=== PATIENT | male | born 1960 | race Caucasian/White ===

== ENCOUNTER 2020-07-25 07:28 | Inpatient (IN) | payer OTHER ==
[~2020-07-25] VITALS: Ht 185.5 cm; Wt 58.0 kg
[2020-07-25] MEDS ORDERED: ASPIRIN 325 MG (5 GR) TABLET PO ONE (07:45)
[2020-07-25] MEDS ORDERED: ACETAMINOPHEN 500 MG TAB (TYLENOL) PO ONE (08:00)
[2020-07-25] MEDS ORDERED: CYCLOBENZAPRINE 10 MG (FLEXERIL) TAB PO ONE (08:00)
[2020-07-25] MEDS ORDERED: KETOROLAC 30 MG/ML VIAL IVP ONE (08:00)
--- NOTE | 2020-07-25 08:00 | ED Chest Pain ---
General Chief Complaint: Chest Pain Stated Complaint: CHEST PAIN Nursing Triage Note: Started having right sided chest pain that started yesterday morning while moving at work. Pain is constant and rated at 2/10 while at rest, 10/10 with movement. Has taken hydrocodone, xanax, and ibuprofen for pain. Is unable to lay flat due to the pain. Is associated with shortness of breath, which is worse with movement. No cough or fever. Pain is worse with movement and deep breaths, radiate to R back. Nursing Sepsis Screen: No Definite Risk History of Present Illness Date Seen by Provider: Jul 25, 2020 Time Seen by Provider: 07:40 Initial Comments The patient is a 60-year-old male with a history of long-standing tobacco abuse and without other chronic medical problems for which he takes daily medication. He has no known cardiovascular disease. He presents for evaluation of right- sided sharp, focal chest discomfort localizing over the right pectoralis muscle, pleuritic and directly reproducible to palpation. Discomfort is worse with deep breathing, with movement of the torso and with ranging of the right arm. It is better with rest. Pain radiates around to the right side of the back laterally at times. 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 Associated mild shortness of breath due to pain when the patient takes a deep breath. No associated fevers, nausea or vomiting, upper respiratory congestion/rhinorrhea, cough, abdominal pain, flank pain, midline back pain, recent immobilization, hemoptysis, calf pain or swelling, personal history of cancer, estrogen or steroid use. Patient did have what sounds like an inguinal hernia repair surgery on the left a couple of months ago. Symptoms somewhat improve with pain medication and anti- inflammatories at home; last medication about 6 hours ago. Patient is alert and pleasantly and appropriately interactive and in absolutely no acute distress upon initial evaluation here in the emergency department. Oxygen saturation low at 91% on RA; other vital signs are appropriate here. Allergies and Home Medications Allergies Coded Allergies: No Known Drug Allergies (Unverified , 07/25/20) Patient Home Medication List Home Medication List Reviewed: Yes Review of Systems Review of Systems Constitutional: no symptoms reported All Other Systems Reviewed Negative Unless Noted: Yes (Negative excepted noted.) Past Xtsqymk-Fmdyfl-Crcdcp Hx Past Med/Social Hx: Reviewed Nursing Past Med/Soc Hx Patient Social History Alcohol Use: Denies Use Recreational Drug Use: No Smoking Status: Current Everyday Smoker Type Used: Cigarettes 2nd Hand Smoke Exposure: Yes Recent Foreign Travel: No Contact w/Someone Who Travel: No Recent Infectious Disease Expo: No Recent Hopitalizations: No Seasonal Allergies Seasonal Allergies: No Past Medical History Surgeries: Yes (hernia) Respiratory: No Cardiac: No Neurological: No Genitourinary: No Gastrointestinal: No Musculoskeletal: No Endocrine: No HEENT: No Cancer: No Psychosocial: No Integumentary: No Blood Disorders: No Adverse Reaction/Blood Tranf: No Family Medical History Reviewed Nursing Family Hx Physical Exam Vital Signs Vital Signs - First Documented 07/25/20 07:35 Temp 36.0 Pulse 97 Resp 16 B/P (MAP) 134/76 (95) Pulse Ox 93 Capillary Refill : Less Than 3 Seconds Height, Weight, BMI Height: '" Weight: lbs. oz. kg; BMI Method: General Appearance: No Apparent Distress Other comments This is an older male appearing nontoxic and in no acute distress. Head is normocephalic and atraumatic. Neck is supple and nontender. Oropharynx is moist. Lungs are clear to auscultation at all stations. Examination of the chest wall reveals no erythema, warmth, swelling, crepitus or paradoxical movement. There is mild focal tenderness to palpation over the right pectoralis muscle, worst medially. There is a normal S1 and S2 without rubs or gallops and capillary refill is appropriate, less than 2 seconds globally. 2+ equal pulses are noted to bilateral radial, dorsalis pedis and posterior tibial arteries without dependent peripheral edema noted anywhere. Abdomen is soft, nontender and nondistended without pulsatile mass. Skin is warm and dry without cyanosis, clubbing or edema. Psychiatrically, the patient demonstrates appropriate mood and affect and is alert. Procedures/Interventions Chest Tube : Chest Tube Location: Mid-Clavicular Chest Anesthesia: 1% Lidocaine w/ Epi V[place] of Air [place]: Yes Post Procedure CXR?: Yes Progress Thora-Vent thoracostomy placed to R 2nd midaxillary line by me; patient tolerated well and there were no complications. Substantial improvement post- procedure. Pre-procedure, patient became acutely dyspneic so needle decompression was performed with an 18-gauge spinal needle at the same site, by me, to stabilize the patient prior to definitive thoracostomy placement. Critical Care Note Critical Care Total Time (minutes) 33 Progress/Results/Core Measures Results/Orders Lab Results Laboratory Tests Test 07/25/20 07:34 07/25/20 07:54 Range/Units White Blood Count 12.4 H 4.3-11.0 10^3/uL Red Blood Count 4.23 L 4.35-5.85 10^6/uL Hemoglobin 11.7 L 13.3-17.7 G/DL Hematocrit 36 L 40-54 % Mean Corpuscular Volume 86 80-99 FL Mean Corpuscular Hemoglobin 28 25-34 PG Mean Corpuscular Hemoglobin Concent 32 32-36 G/DL Red Cell Distribution Width 14.0 10.0-14.5 % Platelet Count 315 130-400 10^3/uL Mean Platelet Volume 8.2 7.4-10.4 FL Immature Granulocyte % (Auto) 0 % Neutrophils (%) (Auto) 80 H 42-75 % Lymphocytes (%) (Auto) 12 12-44 % Monocytes (%) (Auto) 6 0-12 % Eosinophils (%) (Auto) 1 0-10 % Basophils (%) (Auto) 0 0-10 % Neutrophils # (Auto) 9.9 H 1.8-7.8 X 10^3 Lymphocytes # (Auto) 1.5 1.0-4.0 X 10^3 Monocytes # (Auto) 0.8 0.0-1.0 X 10^3 Eosinophils # (Auto) 0.1 0.0-0.3 10^3/uL Basophils # (Auto) 0.1 0.0-0.1 10^3/uL Immature Granulocyte # (Auto) 0.0 0.0-0.1 10^3/uL Prothrombin Time 12.9 12.2-14.7 SEC INR Comment 0.9 0.8-1.4 Activated Partial Thromboplast Time 28 24-35 SEC D-Dimer 0.36 0.00-0.49 UG/ML Sodium Level 134 L 135-145 MMOL/L Potassium Level 4.2 3.6-5.0 MMOL/L Chloride Level 96 L 98-107 MMOL/L Carbon Dioxide Level 26 21-32 MMOL/L Anion Gap 12 5-14 MMOL/L Blood Urea Nitrogen 19 H 7-18 MG/DL Creatinine 0.76 0.60-1.30 MG/DL Estimat Glomerular Filtration Rate > 60 BUN/Creatinine Ratio 25 Glucose Level 152 H 70-105 MG/DL Calcium Level 9.0 8.5-10.1 MG/DL Corrected Calcium 8.5-10.1 MG/DL Total Bilirubin 0.5 0.1-1.0 MG/DL Aspartate Amino Transf (AST/SGOT) 25 5-34 U/L Alanine Aminotransferase (ALT/SGPT) 21 0-55 U/L Alkaline Phosphatase 78 40-136 U/L Troponin I < 0.30 <0.30 NG/ML Pro-B-Type Natriuretic Peptide 26.3 <75.0 PG/ML Total Protein 7.1 6.4-8.2 GM/DL Albumin 4.6 H 3.2-4.5 GM/DL My Orders Orders - MITA ARAYA MD Cbc With Automated Diff (07/25/20 07:34) Comprehensive Metabolic Panel (07/25/20 07:34) Troponin I Fs (07/25/20 07:34) Ekg Tracing (07/25/20 07:34) Chest 1 View Ap/Pa Only (07/25/20 07:34) Protime With Inr (07/25/20 07:34) Partial Thromboplastin Time (07/25/20 07:34) Probnp Fs (07/25/20 07:34) Aspirin Tablet (Aspirin Tablet) (07/25/20 07:45) Fibrin Degradation Products (07/25/20 07:49) Ketorolac Injection (Toradol Injection) (07/25/20 08:00) Acetaminophen Tablet (Tylenol Tablet) (07/25/20 08:00) Cyclobenzaprine Tablet (Flexeril Tablet) (07/25/20 08:00) Lidocaine 1% Inj 20 Ml (Xylocaine 1% Inj (07/25/20 08:22) Ceftriaxone For Iv Use (Rocephin For I (07/25/20 08:45) Azithromycin Injection (Zithromax Inject (07/25/20 08:45) Fentanyl Injection (Sublimaze Injection (07/25/20 08:45) Fentanyl Injection (Sublimaze Injection (07/25/20 09:00) Ns Iv 1000 Ml (Sodium Chloride 0.9%) (07/25/20 08:54) Chest 1 View Ap/Pa Only (07/25/20 09:08) Ns Iv 1000 Ml (Sodium Chloride 0.9%) (07/25/20 09:15) Medications Given in ED Current Medications Medications Dose Ordered Sig/Leti Route Start Time Stop Time Status Last Admin Dose Admin Acetaminophen 1,000 mg ONCE ONCE PO 07/25/20 08:00 07/25/20 08:01 DC 07/25/20 07:59 1,000 MG Aspirin 325 mg ONCE ONCE PO 07/25/20 07:45 07/25/20 07:46 DC 07/25/20 07:59 325 MG Azithromycin 500 mg/Sodium Chloride 250 ml @ 250 mls/hr ONCE ONCE IV 07/25/20 08:45 07/25/20 09:44 07/25/20 09:22 250 MLS/HR Ceftriaxone Sodium 1000 mg/ Sterile Water 10 ml @ 200 mls/hr ONCE ONCE IV 07/25/20 08:45 07/25/20 08:47 DC 07/25/20 09:22 200 MLS/HR Cyclobenzaprine HCl 10 mg ONCE ONCE PO 07/25/20 08:00 07/25/20 08:01 DC 07/25/20 07:59 10 MG Fentanyl Citrate 100 mcg ONCE ONCE IVP 07/25/20 09:00 07/25/20 09:01 DC 07/25/20 08:56 100 MCG Ketorolac Tromethamine 30 mg ONCE ONCE IVP 07/25/20 08:00 07/25/20 08:01 DC 07/25/20 08:01 30 MG Lidocaine HCl 20 ml STK-MED ONCE .ROUTE 07/25/20 08:22 07/25/20 08:24 DC 07/25/20 09:23 20 ML Vital Signs/I&O 07/25/20 07:35 Temp 36.0 Pulse 97 Resp 16 B/P (MAP) 134/76 (95) Pulse Ox 93 Blood Pressure Mean: 95 Progress Progress Note : Time: 08:03 Progress Note HEART score 2, low risk for near-term MACE. Wells score 0 for PE, low risk. 60-year-old gentleman who presents with atypical pleuritic chest discomfort, constant since last evening, reproducible to palpation and with onset while lifting boxes at work. We'll check labs and EKG and chest x-ray and will give a full strength aspirin as well as some medication for discomfort and spasm is noted and will then reevaluate. Oxygenation is abnormal; patient is at 91% on RA, though not conversationally dyspneic. 0930: Patient with large right sided likely spontaneous pneumothorax with a tension component. Patient moved to ED 3 for procedure and did begin to develop severe dyspnea just prior to placement of Thora-Vent thoracostomy. Therefore, Mr. Heard was needle decompressed in the right second intercostal space by me just prior to placement of definitive thoracostomy, which he tolerated well without complications. Post-procedure, patient subjectively much improved and oxygen saturation high 90s on RA. Placed on NRB to facilitate reabsorption of his PTX. Repeat CXR post-thoracostomy demonstrates near-resolution of ptx and resolution of tension component. Given leukocytosis and pleural effusion with possible consolidation at the right base (although more likely atelectasis based on overall clinical scenario), Rocephin and azithromycin administered. Patient will need admission secondary to continued significant air leak. Graciously accepted for admission by Dr. Augustin, who advises that he will have Dr. Neville of pulmonary medicine see the patient urgently on arrival to [facility]. Attempted to contact Dr. Neville myself by phone without success. Stabilized for transfer at this time. Comment Sinus rhythm, rate 78, no acute ST elevation or depression, CO 155, QRS 90, QTc 412, EP interpretation. Nonischemic tracing, intervals appropriate. Diagnostic Imaging Comments NAME: SELINA HEARD [facility] REC#: [id number] PT STATUS: REG ER : 1960 PHYSICIAN: MITA ARAYA MD ADMIT DATE: 07/25/20/ER FS Draft Date of Exam:07/25/20 CHEST 1 VIEW AP/PA ONLY INDICATION: Right upper chest pain since yesterday. EXAMINATION: Single view chest from 07/25/2020. FINDINGS: Heart is unremarkable, pulmonary vasculature normal. There is a large right pneumothorax with mild tension noted. There is a right pleural effusion. Left lung clear. IMPRESSION: 1. Large right tension pneumothorax with right pleural effusion also noted. Findings called to Dr. Araya by Dr. Watson at the time of dictation 07/25/2020 at 8:19 a.m.. Dictated on workstation # [id number] Dict: 07/25/20814 Trans: 07/25/20821 [facility] [id number] Interpreted by: ANDREAS WATSON MD Electronically signed by: NAME: SELINA HEARD [facility] REC#: [id number] PT STATUS: REG ER : 1960 PHYSICIAN: MITA ARAYA MD ADMIT DATE: 07/25/20/ER FS Draft Date of Exam:07/25/20 CHEST 1 VIEW AP/PA ONLY INDICATION: Post Thora vent. EXAMINATION: Chest 07/25/2020 COMPARISON: 07/25/2020 at 8:02 a.m. FINDINGS: There is a chest tube towards the right apex with marked interval improvement in appearance of the right pneumothorax. Tiny residual pneumothorax is suspected at the apex. There is better aeration at the right lung base with atelectasis noted. Adjacent effusion is seen. The remaining chest demonstrate a vague nodularity in the left lower chest most likely an overlying nipple shadow. This could be followed with nipple markers at the next followup chest x-ray. IMPRESSION: 1. Better aeration of the right lung base with marked improvement of the right pneumothorax 2. Small right pleural effusion 3. Question nodularity versus nipple shadow left lower chest see above discussion and recommendations. Dictated on workstation # [id number] Dict: 07/25/20920 Trans: 07/25/20929 [facility] [id number] Interpreted by: ANDREAS WATSON MD Electronically signed by: Departure Impression Primary Impression: Tension pneumothorax, spontaneous Disposition: ADMITTED INPATIENT Condition: Stable MITA ARAYA MD Jul 25, 2020 08:00
[2020-07-25 08:03] LABS: HEMATOCRIT 36 % (40-54); HEMOGLOBIN 11.7 G/DL (13.3-17.7); MEAN CORPUSCULAR HEMOGLOBIN 28 PG (25-34); MEAN CORPUSCULAR VOLUME 86 FL (80-99); WHITE BLOOD COUNT 12.4 10^3/uL (4.3-11.0)
[2020-07-25 08:04] LABS: BASOPHILS # (AUTO) 0.1 10^3/uL (0.0-0.1); BASOPHILS % (AUTO) 0 % (0-10); EOSINOPHILS # (AUTO) 0.1 10^3/uL (0.0-0.3); EOSINOPHILS % (AUTO) 1 % (0-10); LYMPHOCYTES # (AUTO) 1.5 X 10^3 (1.0-4.0); LYMPHOCYTES % (AUTO) 12 % (12-44); MEAN CORPUSCULAR HGB CONC 32 G/DL (32-36); MEAN PLATELET VOLUME 8.2 FL (7.4-10.4); MONOCYTES # (AUTO) 0.8 X 10^3 (0.0-1.0); MONOCYTES % (AUTO) 6 % (0-12); NEUTROPHILS # (AUTO) 9.9 X 10^3 (1.8-7.8); NEUTROPHILS % (AUTO) 80 % (42-75); PLATELET COUNT 315 10^3/uL (130-400)
--- NOTE | 2020-07-25 08:06 | NUR ---
Attempted to contact to give patient update. Phone is going straight to voicemail. Notified patient
[2020-07-25] MEDS ORDERED: LIDOCAINE 1% INJ 20 ML 20 ML VIAL ONE (08:22)
--- NOTE | 2020-07-25 08:24 | Diagnostic Imaging Report ---
INDICATION: Right upper chest pain since yesterday. EXAMINATION: Single view chest from 07/25/2020. FINDINGS: Heart is unremarkable, pulmonary vasculature normal. There is a large right pneumothorax with mild tension noted. There is a right pleural effusion. Left lung clear. IMPRESSION: 1. Large right tension pneumothorax with right pleural effusion also noted. Findings called to Dr. Araya by Dr. Watson at the time of dictation 07/25/2020 at 8:19 a.m.. Dictated by: Dictated on workstation # [id number]
[2020-07-25 08:29] LABS: INR 0.9 (0.8-1.4); PROTHROMBIN TIME PATIENT 12.9 SEC (12.2-14.7)
[2020-07-25 08:30] LABS: FIBRIN DEGRADATION PRODUCTS 0.36 UG/ML (0.00-0.49)
[2020-07-25 08:35] LABS: BUN/CREATININE RATIO 25; CARBON DIOXIDE 26 MMOL/L (21-32); CHLORIDE 96 MMOL/L (98-107); CREATININE SERUM 0.76 MG/DL (0.60-1.30); GFR ESTIMATED > 60; GLUCOSE 152 MG/DL (70-105); POTASSIUM 4.2 MMOL/L (3.6-5.0); SODIUM 134 MMOL/L (135-145)
[2020-07-25 08:36] LABS: ALANINE AMINOTRANSFERASE 21 U/L (0-55); ALBUMIN 4.6 GM/DL (3.2-4.5); ALKALINE PHOSPHATASE 78 U/L (40-136); BILIRUBIN,TOTAL 0.5 MG/DL (0.1-1.0); TOTAL PROTEIN 7.1 GM/DL (6.4-8.2)
[2020-07-25] MEDS ORDERED: fentaNYL INJECTION 100 MCG/2 ML AMP IVP ONE ×2 (08:45→09:00)
[2020-07-25] MEDS ORDERED: AZITHROMYCIN INJECTION 500 MG in NS (IVPB) 250 ML IV ONE (08:45)
[2020-07-25] MEDS ORDERED: cefTRIAXone FOR IV USE 1,000 MG in WATER (STERILE) FOR INJECTION 10 ML IV ONE (08:45)
[2020-07-25] MEDS ORDERED: NS IV 1000 ML 1,000 ML ONE (08:54)
[2020-07-25] MEDS ORDERED: NS IV 1000 ML 1,000 ML IV SCH (09:15)
--- NOTE | 2020-07-25 09:31 | Diagnostic Imaging Report ---
INDICATION: Post Thora vent. EXAMINATION: Chest 07/25/2020 COMPARISON: 07/25/2020 at 8:02 a.m. FINDINGS: There is a chest tube towards the right apex with marked interval improvement in appearance of the right pneumothorax. Tiny residual pneumothorax is suspected at the apex. There is better aeration at the right lung base with atelectasis noted. Adjacent effusion is seen. The remaining chest demonstrate a vague nodularity in the left lower chest most likely an overlying nipple shadow. This could be followed with nipple markers at the next followup chest x-ray. IMPRESSION: 1. Better aeration of the right lung base with marked improvement of the right pneumothorax 2. Small right pleural effusion 3. Question nodularity versus nipple shadow left lower chest see above discussion and recommendations. Dictated by: Dictated on workstation # [id number]
[2020-07-25 10:30] VITALS: BP 116/68
--- NOTE | 2020-07-25 11:36 | Pulmonary Consultation ---
History of Present Illness History of Present Illness Date Seen by Provider: Jul 25, 2020 Time Seen by Provider: 11:31 Date of Admission History of Present Illness 60yo with hx of extensive tobacco use presented to ED secondary to worsening acute pleuritic CP and SOB that started yesterday. Pt denies SOB. [facility] placed a pleurex chest tube. SOB is improved. CP is located around insertion site. Allergies and Home Medications Allergies Coded Allergies: No Known Drug Allergies (Unverified , 07/25/20) Past Qlfeomu-Duxjvw-Xuqalv Hx Past Med/Social Hx: Reviewed Nursing Past Med/Soc Hx Patient Social History Alcohol Use: Denies Use Recreational Drug Use: No Smoking Status: Current Everyday Smoker Type Used: Cigarettes 2nd Hand Smoke Exposure: Yes Recent Foreign Travel: No Contact w/Someone Who Travel: No Recent Infectious Disease Expo: No Recent Hopitalizations: No Seasonal Allergies Seasonal Allergies: No Past Medical History Surgeries: Yes (hernia) Respiratory: No Cardiac: No Neurological: No Genitourinary: No Gastrointestinal: No Musculoskeletal: No Endocrine: No HEENT: No Cancer: No Psychosocial: No Integumentary: No Blood Disorders: No Adverse Reaction/Blood Tranf: No Family Medical History Reviewed Nursing Family Hx Sepsis Event Evaluation Height, Weight, BMI Height: '" Weight: lbs. oz. kg; BMI Method: Exam Exam Vital Signs Date Time Temp Pulse Resp B/P (MAP) Pulse Ox O2 Delivery O2 Flow Rate FiO2 07/25/20 11:16 61 14 144/81 100 OxyMask 6.00 07/25/20 07:35 36.0 97 16 134/76 (95) 93 Height & Weight Height: '" Weight: lbs. oz. kg; BMI Method: General Appearance: No Apparent Distress Capillary Refill: Less Than 3 Seconds Results Lab Laboratory Tests 07/25/20 07:34 07/25/20 07:54 Assessment/Plan Assessment/Plan Acute spont PTX s/p Pleurex chest tube. -Check CT of chest r/o Mass -Place pleurex cath up to suction after chest CT scan. -May need to place regular chest tube if blood gums up current chest tube. right pleural effusion -check BNP -May need echo Leukocytosis r/o pneumonia -Rocephin, and azithromycin -cultures pending -check PCT WEI CASTAÑEDA DO Jul 25, 2020 11:36
[2020-07-25] MEDS ORDERED: HOLD METFORMIN - RECEIVED CONTRAST 20 ML VIAL IV SCH (11:45)
[2020-07-25] MEDS ORDERED: IOHEXOL 350 MG/ML 100 ML (OMNIPAQUE 350) VIAL IV ONE ×2 (11:45)
[2020-07-25] MEDS ORDERED: AZITHROMYCIN INJECTION 500 MG in NS (IVPB) 250 ML IV SCH (11:45)
[2020-07-25] MEDS ORDERED: cefTRIAXone FOR IV USE 1,000 MG in WATER (STERILE) FOR INJECTION 10 ML IV SCH (11:45)
[2020-07-25] MEDS ORDERED: NS 100 ML (IVPB) BAG IV ONE (11:45)
--- NOTE | 2020-07-25 12:33 | Diagnostic Imaging Report ---
PROCEDURE: CT chest with contrast only. TECHNIQUE: Multiple contiguous axial images were obtained through the chest after administration of intravenous contrast. Auto Exposure Controls were utilized during the CT exam to meet ALARA standards for radiation dose reduction. INDICATION: Pneumothorax, mass There are no prior CT chest examinations available for comparison. The plain film examination of the chest performed earlier today at 9:05 AM noted that the pneumothorax on the right had diminished significantly in size when compared to the exam performed at 8:02 AM. A small caliber chest tube had been inserted. On this exam, the small caliber chest tube is again evident, seems to be in good position. However there is at least a moderate hydropneumothorax still present. The amount of fluid in the right lung base measures approximately 10 cm maximum depth. Much of the right lung is collapsed about the right hilum and there is some associated atelectasis/infiltrate throughout the right lung. There also still seems to be slight shift of the midline to the left. The heart is stable in size and within normal limits. Coronary artery calcifications are noted. The aorta is not abnormally dilated and is no sign of dissection. The pulmonary arteries were not fully opacified. Where visualized there is no definite defect within the pulmonary arteries. The chest exam performed earlier today did raise a question of a parenchymal density in the left lower lobe. On this exam there is no mass or pneumonia evident in the left lung. There are emphysematous changes involving the left lung however. There is no mediastinal or hilar adenopathy although the right hilum is difficult to assess due to the compressed lung about the hilum. The thyroid gland is partially secured by streak artifact. The images through the upper abdomen failed to show any sign of an acute abnormality. The bone windows are unremarkable for fracture or for destructive lesion. IMPRESSION: 1. There is at least a moderate residual hydropneumothorax on the right. There may also still be an element of mild tension present. 2. There is no acute cardiopulmonary abnormality identified otherwise. 3. There is no lung mass involving the left lower lobe to correspond to density seen on this chest exam. 4. These results were called to Dr. Nagi Neville at the time of this dictation. Dictated by: Dictated on workstation # [id number]
[2020-07-25] MEDS ORDERED: morphine INJ 4 MG/ML 1 ML (VIAL/SYRINGE) ONE (14:12)
[2020-07-25] MEDS ORDERED: ONDANSETRON 4 MG/2 ML (SDV) Z0FRAN IVP PRN (16:00)
--- NOTE | 2020-07-25 16:02 | Diagnostic Imaging Report ---
INDICATION: Hydropneumothorax on the right. EXAMINATION: Portable erect AP chest at 3:48 p.m. FINDINGS: The CT chest exam performed earlier today at 11:52 a.m. did note at least a moderate residual hydropneumothorax on the right. On this study, the pneumothorax component may be somewhat less. There has been a moderate increase in the atelectasis/infiltrate and fluid involving the right lung base, however. The right-sided chest tube, seen on the prior study, is again evident. The left lung remains generally clear. The heart is stable. IMPRESSION: The pneumothorax component of the hydropneumothorax on the right may be somewhat less than on the prior exam; however, there does seem to be greater involvement of the right lung base by atelectasis/infiltrate and fluid. A follow up study would be recommended for continued evaluation. Dictated by: Dictated on workstation # [id number]
[2020-07-25] MEDS: KETOROLAC 15 MG/ML VIAL IVP PRN (19:37)
--- NOTE | 2020-07-25 20:18 | History & Physical-Hospitalist ---
History of Present Illness HPI/Chief Complaint Shashank Todd is a 60 year old male with history of tobacco abuse who presented with chest pain. He reports that the pain is worse with inspiration and movement. The pain started yesterday while working. The pain radiates around his right side to his back. There is associated dyspnea. He denies fevers. He denies cough. He denies abdominal pain, nausea, and vomiting. He denies hemoptysis. He does not take any medicines daily. He does not have any known medical problems. He is a current smoker, but says he is going to quit because of this issue. Source: patient Exam Limitations: no limitations Date Seen 07/25/20 Time Seen by a Provider: 15:00 Attending Physician Josef Dan MD PCP No,Local Physician Referring Physician Date of Admission Jul 25, 2020 at 11:10 Home Medications & Allergies Home Medications Reviewed patient Home Medication Reconciliation performed by pharmacy medication reconciliations fire control technician b and/or nursing. Patients Allergies have been reviewed. Allergies Allergies Coded Allergies No Known Drug Allergies ([id number]/31/20) Past Nnohduk-Rumgxn-Hqmdpj Hx Past Med/Social Hx: Reviewed Nursing Past Med/Soc Hx Patient Social History Alcohol Use: Denies Use Recreational Drug Use: No Smoking Status: Current Everyday Smoker Type Used: Cigarettes 2nd Hand Smoke Exposure: Yes Recent Foreign Travel: No Contact w/other who traveled: No Recent Hopitalizations: No Recent Infectious Disease Expo: No Seasonal Allergies Seasonal Allergies: No Past Medical History History of Blood Disorders: No Adverse Reaction to Blood Higgins: No Family History Reviewed Nursing Family Hx Review of Systems Constitutional: no symptoms reported EENTM: no symptoms reported Respiratory: short of breath Cardiovascular: chest pain Gastrointestinal: no symptoms reported Genitourinary: no symptoms reported Musculoskeletal: no symptoms reported Skin: no symptoms reported Psychiatric/Neurological: No Symptoms Reported Physical Exam Physical Exam Vital Signs Vital Signs - First Documented 07/25/20 07/25/20 07:35 11:10 Temp 36.0 Pulse 97 Resp 16 B/P (MAP) 134/76 (95) Pulse Ox 93 O2 Delivery High Flow N/C O2 Flow Rate 6.00 Capillary Refill : Less Than 3 Seconds Height, Weight, BMI Height: '" Weight: lbs. oz. kg; 18.25 BMI Method: General Appearance: No Apparent Distress, Thin HEENT: PERRL/EOMI, Pharynx Normal Neck: Normal Inspection, Supple Respiratory: No Respiratory Distress, Decreased Breath Sounds, Other (right- sided chest tube in place on anterior chest wall with bloody output) Cardiovascular: Regular Rate, Rhythm, No Edema, No Murmur, Normal Peripheral Pulses Gastrointestinal: Normal Bowel Sounds, Non Tender, Soft Extremity: Normal Inspection, Non Tender, No Pedal Edema Neurologic/Psychiatric: Alert, Oriented x3, No Motor/Sensory Deficits, Normal Mood/Affect Skin: Normal Color, Warm/Dry Lymphatic: No Adenopathy Results Results/Procedures Labs Laboratory Tests 07/25/20 07:34 07/25/20 07:54 Patient resulted labs reviewed. Imaging: Reviewed Imaging Report Assessment/Plan Admission Diagnosis Acute respiratory failure with hypoxia due to hydropneumothorax Admission Status: Inpatient Order (span 2 midnights) Reason for Inpatient Admission: Hydropneumothorax requiring chest tube Assessment and Plan Acute respiratory failure with hypoxia Spontaneous hydropneumothorax Chest tube in place Chest xray revealed pneumothorax Chest tube placed in ER Pulmonology consulted, appreciate assistance CT Chest performed showed hydropneumothorax Chest tube placed to suction Monitor output, may need larger chest tube placed Procalcitonin 0.02, started on antibiotics, Rocephin and Azithromycin Serial chest xrays Supplemental oxygen Current smoker Nicotine gum as needed BMI less than 19 General diet plus Ensure DVT prophylaxis: SCDs Diagnosis/Problems Diagnosis/Problems (1) Hydropneumothorax (2) Acute respiratory failure with hypoxia (3) Current smoker (4) Body mass index (BMI) of 19 or less in adult (5) Chest tube in place Clinical Quality Measures DVT/VTE Risk/Contraindication: Risk Factor Score Per Nursin RFS Level Per Nursing on Admit: 3=High JOSEF DAN MD Jul 25, 2020 20:18
[2020-07-25] MEDS ORDERED: NICOTINE 2 MG GUM (NICORETTE) PO PRN (20:30)
[2020-07-25] MEDS: morphine INJ 4 MG/ML 1 ML (VIAL/SYRINGE) IVP PRN (23:47)
[2020-07-26 03:51] LABS: BASOPHILS % (AUTO) 0 % (0-10); EOSINOPHILS # (AUTO) 0.3 10^3/uL (0.0-0.3); EOSINOPHILS % (AUTO) 3 % (0-10); HEMATOCRIT 27 % (40-54); HEMOGLOBIN 8.6 g/dL (13.3-17.7); LYMPHOCYTES % (AUTO) 21 % (12-44); MEAN CORPUSCULAR HEMOGLOBIN 28 pg (25-34); MEAN CORPUSCULAR HGB CONC 32 g/dL (32-36); MEAN CORPUSCULAR VOLUME 86 fL (80-99); MONOCYTES # (AUTO) 0.9 10^3/uL (0.0-1.0); MONOCYTES % (AUTO) 9 % (0-12); NEUTROPHILS # (AUTO) 6.3 10^3/uL (1.8-7.8); NEUTROPHILS % (AUTO) 66 % (42-75); PLATELET COUNT 196 10^3/uL (130-400); WHITE BLOOD COUNT 9.6 10^3/uL (4.3-11.0)
[2020-07-26] MEDS: KETOROLAC 15 MG/ML VIAL IVP PRN ×3 (04:07→23:15)
[2020-07-26 04:08] LABS: CHLORIDE 100 MMOL/L (98-107); POTASSIUM 4.3 MMOL/L (3.6-5.0); SODIUM 135 MMOL/L (135-145)
[2020-07-26 04:10] LABS: CALCIUM 8.1 MG/DL (8.5-10.1); GLUCOSE 104 MG/DL (70-105)
[2020-07-26 04:12] LABS: CARBON DIOXIDE 26 MMOL/L (21-32)
[2020-07-26 04:14] LABS: CREATININE SERUM 0.67 MG/DL (0.60-1.30); GFR ESTIMATED > 60
[2020-07-26 04:15] LABS: BUN/CREATININE RATIO 22
[2020-07-26 04:16] LABS: MAGNESIUM 1.9 MG/DL (1.6-2.4)
[2020-07-26] MEDS: POTASSIUM CL 10MEQ/50ML IVPB 50 ML IV SCH (04:19)
[2020-07-26] MEDS: MAGNESIUM 1 GM/100 ML IVPB 100 ML IV SCH (04:19)
[2020-07-26] MEDS: KCL 20 MEQ TAB (K-DUR) PO SCH (04:19)
--- NOTE | 2020-07-26 05:28 | Pulmonary Progress Note ---
Subjective Time Seen by a Provider: 05:23 Sepsis Event Evaluation Height, Weight, BMI Height: '" Weight: lbs. oz. kg; 18.25 BMI Method: Exam Exam Vital Signs Date Time Temp Pulse Resp B/P (MAP) Pulse Ox O2 Delivery O2 Flow Rate FiO2 07/26/20 04:00 99 High Flow N/C 6.00 07/26/20 03:00 67 115/69 97 High Flow N/C 6.00 07/26/20 02:00 62 114/56 99 High Flow N/C 6.00 07/26/20 01:00 64 124/59 100 High Flow N/C 6.00 07/26/20 01:00 71 07/26/20 00:21 95 High Flow N/C 6.00 07/26/20 00:00 99 High Flow N/C 6.00 07/26/20 00:00 60 126/65 100 High Flow N/C 6.00 07/25/20 23:00 60 126/75 100 High Flow N/C 6.00 07/25/20 22:00 62 134/67 100 High Flow N/C 6.00 07/25/20 21:00 66 122/65 100 High Flow N/C 6.00 07/25/20 20:04 37.0 07/25/20 20:00 98 High Flow N/C 6.00 07/25/20 20:00 64 122/59 100 High Flow N/C 6.00 07/25/20 19:00 70 07/25/20 19:00 65 129/63 100 High Flow N/C 6.00 07/25/20 18:00 64 126/65 100 High Flow N/C 6.00 07/25/20 17:00 74 116/70 100 High Flow N/C 6.00 07/25/20 16:00 High Flow N/C 6.00 07/25/20 16:00 65 126/64 99 High Flow N/C 6.00 07/25/20 15:49 36.8 07/25/20 15:00 81 122/66 92 High Flow N/C 6.00 07/25/20 14:00 80 111/65 96 High Flow N/C 6.00 07/25/20 13:00 81 117/68 High Flow N/C 6.00 07/25/20 12:59 67 10/31/20 12:00 69 112/69 96 High Flow N/C 6.00 07/25/20 12:00 High Flow N/C 6.00 07/25/20 11:51 69 07/25/20 11:31 High Flow N/C 6.00 07/25/20 11:16 61 14 144/81 100 OxyMask 6.00 07/25/20 11:10 High Flow N/C 6.00 07/25/20 10:30 64 18 116/68 100 07/25/20 07:35 36.0 97 16 134/76 (95) 93 I & O 07/26/20 07:00 Intake Total 3120 ml Output Total 50 ml Balance 3070 ml Height & Weight Height: '" Weight: lbs. oz. kg; 18.25 BMI Method: General Appearance: No Apparent Distress, Thin HEENT: PERRL/EOMI, Pharynx Normal Neck: Normal Inspection, Supple Respiratory: No Respiratory Distress, Decreased Breath Sounds, Other (right- sided chest tube in place on anterior chest wall with bloody output) Cardiovascular: Regular Rate, Rhythm, No Edema, No Murmur, Normal Peripheral Pulses Capillary Refill: Less Than 3 Seconds Extremity: Normal Inspection, Non Tender, No Pedal Edema Neurologic/Psychiatric: Alert, Oriented x3, No Motor/Sensory Deficits, Normal Mood/Affect Skin: Normal Color, Warm/Dry Lymphatic: No Adenopathy Results Lab Laboratory Tests 07/25/20 07:34 07/25/20 07:54 07/26/20 03:45 Assessment/Plan Assessment/Plan Acute spont PTX s/p Pleurex chest tube. -CT of chest with contrast reviewed -Continue pleurex cath with suction -May need to place regular chest tube if blood gums up current chest tube. right pleural effusion -BNP - is normal Anemia -Monitor -Hold lovenox for now Leukocytosis-- resolved. Doubt pna -D/C Rocephin, and azithromycin -PCT- Normal Severe COPD/Emphysema Tobacco use -He has smoked since 13yo WEI CASTAÑEDA DO Jul 26, 2020 05:28
--- NOTE | 2020-07-26 08:03 | Diagnostic Imaging Report ---
INDICATION: Dyspnea. EXAMINATION: Chest 07/26/2020. COMPARISON: 07/25/2020 FINDINGS: Pneumothorax of right lung apex persists with chest tube unchanged. There is overlying subcutaneous air. There is a right pleural effusion with underlying atelectasis or infiltrate. Left lung is stable IMPRESSION: 1. Persistent right apical pneumothorax with right pleural effusion and right base infiltrate or atelectasis. Dictated by: Dictated on workstation # [id number]
[2020-07-26] MEDS ORDERED: AZITHROMYCIN INJECTION 500 MG in NS (IVPB) 250 ML IV SCH (12:00)
--- NOTE | 2020-07-26 12:05 | Progress Note - Hospitalist ---
Subjective HPI/CC On Admission Date Seen by Provider: Jul 26, 2020 Time Seen by Provider: 09:00 Shashank Todd is a 60 year old male with history of tobacco abuse who presented with chest pain. He reports that the pain is worse with inspiration and movement. The pain started yesterday while working. The pain radiates around his right side to his back. There is associated dyspnea. He denies fevers. He denies cough. He denies abdominal pain, nausea, and vomiting. He denies hemoptysis. He does not take any medicines daily. He does not have any known medical problems. He is a current smoker, but says he is going to quit because of this issue. Subjective/Events-last exam he is feeling well today. He still has some chest pain on the right side. He denies shortness of breath. He has no other complaints or concerns. Objective Exam Vital Signs Vital Signs Date Time Temp Pulse Resp B/P (MAP) Pulse Ox O2 Delivery O2 Flow Rate FiO2 07/26/20 11:52 37.1 07/26/20 11:00 76 138/93 99 High Flow N/C 6.00 07/26/20 09:00 32 Capillary Refill : Less Than 3 Seconds General Appearance: No Apparent Distress, Thin Respiratory: Chest Non Tender (chest tube in place on right side), Lungs Clear, Normal Breath Sounds, No Respiratory Distress Cardiovascular: Regular Rate, Rhythm, No Edema, No Murmur Gastrointestinal: Normal Bowel Sounds, Non Tender, Soft Extremity: Normal Inspection, Non Tender, No Pedal Edema Neurologic/Psychiatric: Alert, Oriented x3, No Motor/Sensory Deficits, Normal Mood/Affect Skin: Normal Color, Warm/Dry Results/Procedures Lab Laboratory Tests 07/26/20 03:45 Patient resulted labs reviewed. Imaging: Reviewed Imaging Report Assessment/Plan Assessment and Plan Assess & Plan/Chief Complaint Acute respiratory failure with hypoxia Spontaneous hemopneumothorax Chest tube in place Anemia Pulmonology consulted, appreciate assistance CT Chest performed showed hydropneumothorax Chest tube on suction Monitor output, may need larger chest tube placed Continue antibiotics for possible pneumonia Serial chest xrays Supplemental oxygen Hgb 8.6, continue to monitor Obtain type and screen for possible transfusion need Current smoker Nicotine gum as needed BMI less than 20 General diet plus Ensure DVT prophylaxis: SCDs Diagnosis/Problems Diagnosis/Problems (1) Hemopneumothorax on right Status: Acute (2) Acute respiratory failure with hypoxia (3) Current smoker (4) Chest tube in place (5) Body mass index (BMI) less than 20 Status: Acute Clinical Quality Measures DVT/VTE Risk/Contraindication: Risk Factor Score Per Nursin RFS Level Per Nursing on Admit: 3=High JOSEF DAN MD Jul 26, 2020 12:05
[2020-07-26] MEDS: morphine INJ 4 MG/ML 1 ML (VIAL/SYRINGE) IVP PRN (15:54)
[2020-07-26 18:16] LABS: BILIRUBIN,URINE NEGATIVE (NEGATIVE); CLARITY,URINE CLEAR; COLOR,URINE YELLOW; GLUCOSE, URINE (UA) NEGATIVE (NEGATIVE); KETONES,URINE NEGATIVE (NEGATIVE); LEUKOCYTE ESTERASE ,URINE NEGATIVE (NEGATIVE); NITRITE,URINE NEGATIVE (NEGATIVE); PH,URINE 5.5 (5-9); PROTEIN,URINE NEGATIVE (NEGATIVE)
[2020-07-26 18:21] LABS: BACTERIA,URINE NEGATIVE /HPF
[2020-07-27 03:19] LABS: BASOPHILS % (AUTO) 0 % (0-10); EOSINOPHILS # (AUTO) 0.4 10^3/uL (0.0-0.3); EOSINOPHILS % (AUTO) 3 % (0-10); HEMATOCRIT 26 % (40-54); HEMOGLOBIN 8.3 g/dL (13.3-17.7); LYMPHOCYTES # (AUTO) 1.9 10^3/uL (1.0-4.0); LYMPHOCYTES % (AUTO) 16 % (12-44); MEAN CORPUSCULAR HEMOGLOBIN 28 pg (25-34); MEAN CORPUSCULAR HGB CONC 31 g/dL (32-36); MEAN CORPUSCULAR VOLUME 87 fL (80-99); MEAN PLATELET VOLUME 8.9 fL (9.0-12.2); MONOCYTES # (AUTO) 0.9 10^3/uL (0.0-1.0); MONOCYTES % (AUTO) 8 % (0-12); NEUTROPHILS # (AUTO) 8.3 10^3/uL (1.8-7.8); NEUTROPHILS % (AUTO) 73 % (42-75); PLATELET COUNT 185 10^3/uL (130-400); WHITE BLOOD COUNT 11.5 10^3/uL (4.3-11.0)
[2020-07-27 03:36] LABS: CHLORIDE 98 MMOL/L (98-107); POTASSIUM 4.6 MMOL/L (3.6-5.0); SODIUM 135 MMOL/L (135-145)
[2020-07-27 03:37] LABS: CALCIUM 8.4 MG/DL (8.5-10.1)
[2020-07-27 03:38] LABS: GLUCOSE 105 MG/DL (70-105)
[2020-07-27 03:39] LABS: CARBON DIOXIDE 30 MMOL/L (21-32)
[2020-07-27 03:41] LABS: PHOSPHORUS 3.5 MG/DL (2.3-4.7)
[2020-07-27 03:42] LABS: BUN/CREATININE RATIO 17; CREATININE SERUM 0.75 MG/DL (0.60-1.30); GFR ESTIMATED > 60
[2020-07-27] MEDS: POTASSIUM CL 10MEQ/50ML IVPB 50 ML IV SCH (03:43)
[2020-07-27] MEDS: KCL 20 MEQ TAB (K-DUR) PO SCH (03:43)
[2020-07-27 03:44] LABS: MAGNESIUM 1.9 MG/DL (1.6-2.4)
[2020-07-27] MEDS: MAGNESIUM 1 GM/100 ML IVPB 100 ML IV SCH (03:46)
--- NOTE | 2020-07-27 05:26 | Pulmonary Progress Note ---
Subjective Time Seen by a Provider: 05:26 Sepsis Event Evaluation Height, Weight, BMI Height: '" Weight: lbs. oz. kg; 18.25 BMI Method: Exam Exam Vital Signs Date Time Temp Pulse Resp B/P (MAP) Pulse Ox O2 Delivery O2 Flow Rate FiO2 07/27/20 05:01 37.2 07/27/20 04:00 64 33 122/62 99 High Flow N/C 6.00 07/27/20 04:00 99 High Flow N/C 6.00 07/27/20 03:00 67 119/75 97 High Flow N/C 6.00 07/27/20 02:00 57 113/58 99 High Flow N/C 6.00 07/27/20 01:00 76 18 115/61 99 High Flow N/C 6.00 07/27/20 01:00 61 07/27/20 00:00 99 High Flow N/C 6.00 07/27/20 00:00 64 21 107/55 100 High Flow N/C 6.00 07/27/20 00:00 37.4 07/26/20 23:30 95 High Flow N/C 6.00 07/26/20 23:00 64 31 131/58 100 High Flow N/C 6.00 07/26/20 22:00 76 20 110/63 99 High Flow N/C 6.00 07/26/20 21:00 65 36 146/69 100 High Flow N/C 6.00 07/26/20 20:00 99 High Flow N/C 6.00 07/26/20 20:00 88 148/78 99 High Flow N/C 6.00 07/26/20 19:00 71 144/81 96 High Flow N/C 6.00 07/26/20 19:00 70 07/26/20 18:00 67 174/83 99 High Flow N/C 6.00 07/26/20 17:00 80 122/79 98 High Flow N/C 6.00 07/26/20 16:00 99 High Flow N/C 6.00 07/26/20 16:00 73 158/75 99 High Flow N/C 6.00 07/26/20 16:00 37.3 07/26/20 15:00 73 132/68 99 High Flow N/C 6.00 07/26/20 14:00 62 139/79 99 High Flow N/C 6.00 07/26/20 13:00 65 161/97 99 High Flow N/C 6.00 07/26/20 12:23 61 07/26/20 12:00 71 97/77 98 High Flow N/C 6.00 07/26/20 12:00 99 High Flow N/C 6.00 07/26/20 11:52 37.1 07/26/20 11:00 76 138/93 99 High Flow N/C 6.00 07/26/20 10:00 58 136/74 100 High Flow N/C 6.00 07/26/20 09:00 71 32 146/69 99 High Flow N/C 6.00 07/26/20 08:00 99 High Flow N/C 6.00 07/26/20 08:00 70 125/66 98 High Flow N/C 6.00 07/26/20 08:00 37.0 07/26/20 07:00 68 122/65 99 High Flow N/C 6.00 07/26/20 07:00 83 07/26/20 06:00 69 125/62 99 High Flow N/C 6.00 I & O 07/27/20 07:00 Intake Total 2850 ml Output Total 360 ml Balance 2490 ml Height & Weight Height: '" Weight: lbs. oz. kg; 18.25 BMI Method: General Appearance: No Apparent Distress, Thin HEENT: PERRL/EOMI, Pharynx Normal Neck: Normal Inspection, Supple Respiratory: Chest Non Tender (chest tube in place on right side), Lungs Clear, Normal Breath Sounds, No Respiratory Distress Cardiovascular: Regular Rate, Rhythm, No Edema, No Murmur Capillary Refill: Less Than 3 Seconds Extremity: Normal Inspection, Non Tender, No Pedal Edema Neurologic/Psychiatric: Alert, Oriented x3, No Motor/Sensory Deficits, Normal Mood/Affect Skin: Normal Color, Warm/Dry Lymphatic: No Adenopathy Results Lab Laboratory Tests 07/25/20 07:34 07/25/20 07:54 07/26/20 03:45 07/27/20 03:04 Assessment/Plan Assessment/Plan Acute spont PTX s/p Pleurex chest tube. -CT of chest with contrast reviewed -Continue pleurex cath with suction -May need to place regular chest tube if blood gums up current chest tube. right pleural effusion -BNP - is normal Anemia -Monitor -Hold lovenox for now Leukocytosis-- resolved. Doubt pna -D/C Rocephin, and azithromycin -PCT- Normal Severe COPD/Emphysema Tobacco use -He has smoked since 13yo WEI CASTAÑEDA DO Jul 27, 2020 05:26
--- NOTE | 2020-07-27 07:28 | Diagnostic Imaging Report ---
INDICATION: Pneumothorax. COMPARISON: 07/26/2020. FINDINGS: Single view of the chest demonstrates stable effusion in the right base. There is persistent but slightly smaller right apical pneumothorax. The left lung is clear. The heart is normal. Osseous structures are stable. IMPRESSION: 1. Persistent slightly smaller right apical pneumothorax with small caliber chest tube in place. 2. Stable effusion right base. 3. Not mentioned above increasing subcutaneous air along the right chest wall. Dictated by: Dictated on workstation # [id number]
--- NOTE | 2020-07-27 09:03 | Progress Note - Hospitalist ---
Subjective HPI/CC On Admission Date Seen by Provider: Jul 27, 2020 Time Seen by Provider: 08:58 Shashank Todd is a 60 year old male with history of tobacco abuse who presented with chest pain. He reports that the pain is worse with inspiration and movement. The pain started yesterday while working. The pain radiates around his right side to his back. There is associated dyspnea. He denies fevers. He denies cough. He denies abdominal pain, nausea, and vomiting. He denies hemoptysis. He does not take any medicines daily. He does not have any known medical problems. He is a current smoker, but says he is going to quit because of this issue. Subjective/Events-last exam Pt reports feeling well. Discussed chest tube and potential need to replace with large bore tube. Patient requests this be done sooner rather than later because he's worried about being here without insurance and losing income from not being at work. Objective Exam Vital Signs Vital Signs Date Time Temp Pulse Resp B/P (MAP) Pulse Ox O2 Delivery O2 Flow Rate FiO2 07/27/20 06:00 65 127/69 99 High Flow N/C 6.00 07/27/20 05:01 37.2 07/27/20 04:00 33 Capillary Refill : Less Than 3 Seconds General Appearance: No Apparent Distress, WD/WN Respiratory: Lungs Clear, Other (chest tube in place) Cardiovascular: Regular Rate, Rhythm, No Murmur Gastrointestinal: Normal Bowel Sounds, Soft Neurologic/Psychiatric: Alert, Oriented x3 Results/Procedures Lab Laboratory Tests 07/27/20 03:04 Patient resulted labs reviewed. Imaging: Reviewed Imaging Report Assessment/Plan Assessment and Plan Assess & Plan/Chief Complaint Acute respiratory failure with hypoxia Spontaneous hemopneumothorax Chest tube in place Anemia Pulmonology consulted, appreciate assistance CT Chest performed showed hydropneumothorax Chest tube on suction Monitor output, may need larger chest tube placed, discussed patient request with Dr Neville; repeat CXR this afternoon Continue antibiotics for possible pneumonia Supplemental oxygen Hgb 8.3, continue to monitor Current smoker Nicotine gum as needed BMI less than 20 General diet plus Ensure DVT prophylaxis: SCDs Diagnosis/Problems Diagnosis/Problems (1) Acute respiratory failure with hypoxia (2) Body mass index (BMI) of 19 or less in adult (3) Hydropneumothorax (4) Chest tube in place (5) Pneumothorax, right Status: Acute (6) Current smoker Clinical Quality Measures DVT/VTE Risk/Contraindication: Risk Factor Score Per Nursin RFS Level Per Nursing on Admit: 3=High ALICIA ISSA MD Jul 27, 2020 09:03
[2020-07-27] MEDS ORDERED: CALC-870 PO (11:01)
[2020-07-27] MEDS ORDERED: ASCO500C17 PO (11:01)
[2020-07-27] MEDS ORDERED: MULT-1136 PO (11:01)
[2020-07-27] MEDS ORDERED: ACET-2267 PO (11:01)
[2020-07-27] MEDS ORDERED: CHOL10002 PO (11:01)
--- NOTE | 2020-07-27 11:03 | NUR ---
SPOKE WITH THE PT (CALLED HIS ROOM PHONE) TO COMPLETE THE MED REC PT DENIES TAKING ANY PRESCRIPTION MEDICATION OTC MEDS: TYLENOL VITAMIN D VITAMIN C KENNA CHOI
--- NOTE | 2020-07-27 13:32 | Diagnostic Imaging Report ---
INDICATION: Pneumothorax. EXAMINATION: Portable chest at 12:54 PM. FINDINGS: There appear to be some emphysematous changes in the apices. There appears to be an apical pneumothorax measuring approximately 1.5 cm. There is a right-sided thoracostomy tube. There is a right pleural effusion. The left lung is clear. IMPRESSION: Emphysema. Right hydropneumothorax. No significant change from the previous day. Dictated by: Dictated on workstation # [id number]
[2020-07-27] MEDS ORDERED: LORazepam 0.5 MG (ATIVAN) TABLET ONE (18:24)
[2020-07-27] MEDS: LORazepam 0.5 MG (ATIVAN) TABLET PO PRN (18:26)
[2020-07-27] MEDS: morphine INJ 4 MG/ML 1 ML (VIAL/SYRINGE) IVP PRN ×2 (20:20→23:33)
[2020-07-28 03:39] LABS: BASOPHILS % (AUTO) 0 % (0-10); EOSINOPHILS # (AUTO) 0.6 10^3/uL (0.0-0.3); EOSINOPHILS % (AUTO) 5 % (0-10); HEMATOCRIT 26 % (40-54); HEMOGLOBIN 8.3 g/dL (13.3-17.7); LYMPHOCYTES # (AUTO) 2.4 10^3/uL (1.0-4.0); LYMPHOCYTES % (AUTO) 23 % (12-44); MEAN CORPUSCULAR HEMOGLOBIN 28 pg (25-34); MEAN CORPUSCULAR HGB CONC 31 g/dL (32-36); MEAN CORPUSCULAR VOLUME 88 fL (80-99); MEAN PLATELET VOLUME 9.1 fL (9.0-12.2); MONOCYTES # (AUTO) 0.9 10^3/uL (0.0-1.0); MONOCYTES % (AUTO) 8 % (0-12); NEUTROPHILS # (AUTO) 6.7 10^3/uL (1.8-7.8); NEUTROPHILS % (AUTO) 64 % (42-75); PLATELET COUNT 234 10^3/uL (130-400); WHITE BLOOD COUNT 10.6 10^3/uL (4.3-11.0)
[2020-07-28 03:50] LABS: CHLORIDE 96 MMOL/L (98-107); POTASSIUM 4.6 MMOL/L (3.6-5.0); SODIUM 134 MMOL/L (135-145)
[2020-07-28 03:52] LABS: CALCIUM 8.7 MG/DL (8.5-10.1); GLUCOSE 96 MG/DL (70-105)
[2020-07-28 03:54] LABS: CARBON DIOXIDE 30 MMOL/L (21-32)
[2020-07-28 03:56] LABS: CREATININE SERUM 0.68 MG/DL (0.60-1.30); GFR ESTIMATED > 60; PHOSPHORUS 3.4 MG/DL (2.3-4.7)
[2020-07-28 03:57] LABS: BUN/CREATININE RATIO 21
[2020-07-28 03:59] LABS: MAGNESIUM 1.8 MG/DL (1.6-2.4)
[2020-07-28] MEDS: POTASSIUM CL 10MEQ/50ML IVPB 50 ML IV SCH (04:17)
[2020-07-28] MEDS: MAGNESIUM 1 GM/100 ML IVPB 100 ML IV SCH (04:17)
[2020-07-28] MEDS: KCL 20 MEQ TAB (K-DUR) PO SCH (04:17)
--- NOTE | 2020-07-28 05:36 | Pulmonary Progress Note ---
Subjective Time Seen by a Provider: 05:31 Subjective/Events-last exam No complications noted. Sepsis Event Evaluation Height, Weight, BMI Height: '" Weight: lbs. oz. kg; 18.25 BMI Method: Exam Exam Vital Signs Date Time Temp Pulse Resp B/P (MAP) Pulse Ox O2 Delivery O2 Flow Rate FiO2 07/28/20 05:00 67 28 130/71 95 High Flow N/C 6.00 07/28/20 04:00 96 High Flow N/C 6.00 07/28/20 04:00 78 33 138/82 96 High Flow N/C 6.00 07/28/20 03:00 67 27 117/61 95 High Flow N/C 6.00 07/28/20 02:00 73 17 112/67 97 High Flow N/C 6.00 07/28/20 01:00 73 07/28/20 01:00 73 26 120/70 98 High Flow N/C 6.00 07/28/20 00:00 78 19 133/75 99 High Flow N/C 6.00 07/28/20 00:00 94 High Flow N/C 6.00 07/27/20 23:50 95 High Flow N/C 6.00 07/27/20 23:45 36.8 07/27/20 23:00 103 24 134/84 92 High Flow N/C 6.00 07/27/20 22:00 81 19 109/63 95 High Flow N/C 6.00 07/27/20 21:00 88 35 122/84 92 High Flow N/C 6.00 07/27/20 20:03 37.2 07/27/20 20:00 80 23 133/70 99 High Flow N/C 6.00 07/27/20 20:00 92 High Flow N/C 6.00 07/27/20 19:00 83 07/27/20 19:00 83 123/68 98 High Flow N/C 6.00 07/27/20 18:00 87 65 128/79 100 High Flow N/C 6.00 07/27/20 17:00 93 98 High Flow N/C 6.00 07/27/20 16:00 70 107/60 97 High Flow N/C 6.00 07/27/20 16:00 99 High Flow N/C 6.00 07/27/20 15:30 36.9 11/2/20 15:00 70 40 125/68 100 High Flow N/C 6.00 07/27/20 14:00 65 68 100/84 100 High Flow N/C 6.00 07/27/20 13:00 90 26 130/74 100 High Flow N/C 6.00 07/27/20 12:40 65 07/27/20 12:08 99 High Flow N/C 6.00 07/27/20 12:00 67 20 136/79 99 High Flow N/C 6.00 07/27/20 11:56 37.1 07/27/20 11:00 68 19 141/71 96 High Flow N/C 6.00 07/27/20 10:00 66 66 142/75 98 High Flow N/C 6.00 07/27/20 09:00 68 41 135/69 98 High Flow N/C 6.00 07/27/20 08:00 99 High Flow N/C 6.00 07/27/20 08:00 68 28 130/65 100 High Flow N/C 6.00 07/27/20 07:00 66 21 137/70 100 High Flow N/C 6.00 07/27/20 06:36 67 07/27/20 06:00 65 127/69 99 High Flow N/C 6.00 I & O 07/28/20 07:00 Intake Total 1175 ml Output Total 50 ml Balance 1125 ml Height & Weight Height: '" Weight: lbs. oz. kg; 18.25 BMI Method: General Appearance: No Apparent Distress, WD/WN HEENT: PERRL/EOMI, Pharynx Normal Neck: Normal Inspection, Supple Respiratory: Lungs Clear, Other (chest tube in place) Cardiovascular: Regular Rate, Rhythm, No Murmur Capillary Refill: Less Than 3 Seconds Extremity: Normal Inspection, Non Tender, No Pedal Edema Neurologic/Psychiatric: Alert, Oriented x3 Skin: Normal Color, Warm/Dry Lymphatic: No Adenopathy Results Lab Laboratory Tests 07/27/20 03:04 07/28/20 03:12 Assessment/Plan Assessment/Plan Acute spont PTX s/p Pleurex chest tube. -- I question if this is a trapped lung. -CT of chest with contrast reviewed -Continue pleurex cath with suction -There is no air leak in the chest tube system currently -Will disconnect from suction. -Check CT of chest. right pleural effusion -BNP - is normal Anemia -Monitor -Hold lovenox for now Leukocytosis-- resolved. Doubt pna -D/C Rocephin, and azithromycin -PCT- Normal Severe COPD/Emphysema Tobacco use -He has smoked since 13yo WEI CASTAÑEDA DO Jul 28, 2020 05:36
--- NOTE | 2020-07-28 07:29 | Diagnostic Imaging Report ---
PROCEDURE: CT chest with contrast only. TECHNIQUE: Multiple contiguous axial images were obtained through the chest after administration of intravenous contrast. Auto Exposure Controls were utilized during the CT exam to meet ALARA standards for radiation dose reduction. INDICATION: Pneumothorax. Exam compared with study 07/25/2020. FINDINGS: The large right hydropneumothorax is again identified, volume of pleural fluid unchanged. The right lower lobe largely consolidated and airless. The right upper lobe shows extensive cyst formation and emphysematous disease. Subcutaneous edema along the upper right chest wall extending into the neck has progressed. There is no evidence for tension. No displacement of the cardiomediastinal silhouette, Severe and centrilobular and bullous emphysema in the contralateral left lung is unchanged, no identifiable left lung pneumothorax. There is a right chest tube in the pleural space. The aorta is patent and nonaneurysmal. No left-sided pleural fluid. IMPRESSION: Redemonstration of large right hydropneumothorax without evidence for its tension. Right lower lobe is nearly airless and consolidated. The right upper lobe shows severe bullous emphysema. Subcutaneous emphysema progressed. A chest tube is within the pleural space. Chronic changes in the left lung with no left pleural pathology. Dictated by: Dictated on workstation # [id number]
[2020-07-28] MEDS ORDERED: MIDAZOLAM 5 MG/5 ML (VERSED) VIAL ONE (07:48)
[2020-07-28] MEDS ORDERED: fentaNYL INJECTION 100 MCG/2 ML AMP ONE (07:48)
[2020-07-28] MEDS ORDERED: LIDOCAINE 1% INJ 20 ML 20 ML VIAL ONE (07:49)
--- NOTE | 2020-07-28 07:59 | Diagnostic Imaging Report ---
EXAMINATION: Portable erect AP chest at 3:55 AM INDICATION: Respiratory distress The appearance of the chest has worsened since the prior exam of 07/27/2020 as the pneumothorax on the right has increased. On the prior exam, the distance from the bony thorax to the lung edge was in the right apex is 1.5 cm. On this study, it is difficult to identify the pneumothorax in the right apex. However, there is now approximately 2.8 cm of separation between the pleura and the bony thorax in the right lung base. The right-sided chest tube seen previously is still present. There has also been an increase in the atelectasis/infiltrate in the right suprahilar region. The right lower lobe atelectasis/infiltrate and fluid is essentially no different. The left lung remains clear. The heart is stable. The mediastinum is not widened. The subcutaneous emphysema along the right thorax seen previously is essentially no different. The osseous structures are intact. IMPRESSION: 1. The appearance of the chest has worsened since the prior study as the pneumothorax component of the hydropneumothorax on the right has increased. There is also greater involvement of the right upper lobe by pneumonia/atelectasis. A follow-up exam would be recommended for continued evaluation. 2. These results were called to Dr. Nagi Neville. CRITICAL FINDING Dictated by: Dictated on workstation # [id number]
[2020-07-28] MEDS ORDERED: LIDOCAINE 1% INJ 20 ML 20 ML VIAL INJ ONE (08:00)
[2020-07-28] MEDS ORDERED: fentaNYL INJECTION 100 MCG/2 ML AMP IVP ONE (08:00)
[2020-07-28] MEDS ORDERED: MIDAZOLAM 5 MG/5 ML (VERSED) VIAL IVP ONE (08:00)
--- NOTE | 2020-07-28 09:12 | Diagnostic Imaging Report ---
Indication: Chest tube placement. Findings: A large bore right-sided chest catheter has been placed with reduction in right pneumothorax. There is some residual apical pleural air and pleural separation of 2 cm but overall the pneumothorax significantly decreased. Subcutaneous emphysema unchanged. The left lung and pleural space negative. Impression: A large bore chest catheter placed with a reduction in right pneumothorax showing no tension, similar subcutaneous emphysema, no adverse development. Dictated by: Dictated on workstation # [id number]
--- NOTE | 2020-07-28 09:15 | Progress Note - Hospitalist ---
Subjective HPI/CC On Admission Date Seen by Provider: Jul 28, 2020 Time Seen by Provider: 09:10 Shashank Todd is a 60 year old male with history of tobacco abuse who presented with chest pain. He reports that the pain is worse with inspiration and movement. The pain started yesterday while working. The pain radiates around his right side to his back. There is associated dyspnea. He denies fevers. He denies cough. He denies abdominal pain, nausea, and vomiting. He denies hemoptysis. He does not take any medicines daily. He does not have any known medical problems. He is a current smoker, but says he is going to quit because of this issue. Subjective/Events-last exam pt just had chest tube replaced this morning by Dr Neville. Objective Exam Vital Signs Vital Signs Date Time Temp Pulse Resp B/P (MAP) Pulse Ox O2 Delivery O2 Flow Rate FiO2 07/29/20 17:15 68 149/72 100 High Flow N/C 6.00 07/29/20 15:30 37.0 07/29/20 10:00 30 Capillary Refill : Less Than 3 Seconds General Appearance: No Apparent Distress, Other (drowsy from sedation) Respiratory: Lungs Clear, No Respiratory Distress Cardiovascular: Regular Rate, Rhythm, No Murmur Gastrointestinal: Normal Bowel Sounds, Non Tender, Soft Neurologic/Psychiatric: Alert, Oriented x3 Results/Procedures Lab Laboratory Tests 07/29/20 01:51 Patient resulted labs reviewed. Imaging: Reviewed Imaging Report Assessment/Plan Assessment and Plan Assess & Plan/Chief Complaint Acute respiratory failure with hypoxia Spontaneous hemopneumothorax Chest tube in place Anemia Pulmonology consulted, appreciate assistance Repeat CT shows reexpansion of pneumothorax large bore chest tube placed this morning- significant bloody output Continue antibiotics Supplemental oxygen Hgb stable at 8.3, continue to monitor Surgery consulted, appreciate recs Discussed with Dr Neville and Dr Cottrell- no change in management Current smoker Nicotine gum as needed BMI less than 20 General diet plus Ensure DVT prophylaxis: SCDs Diagnosis/Problems Diagnosis/Problems (1) Acute respiratory failure with hypoxia (2) Body mass index (BMI) of 19 or less in adult (3) Hydropneumothorax (4) Chest tube in place (5) Pneumothorax, right Status: Acute (6) Current smoker Clinical Quality Measures DVT/VTE Risk/Contraindication: Risk Factor Score Per Nursin RFS Level Per Nursing on Admit: 3=High ALICIA ISSA MD Jul 28, 2020 09:15
[2020-07-28] MEDS: KETOROLAC 15 MG/ML VIAL IVP PRN ×2 (10:14→19:28)
--- NOTE | 2020-07-28 14:09 | NUR ---
0745 - DR CASTAÑEDA NOTIFIED OF CT RESULTS. DISCUSSED WITH PATIENT THAT A LARGE BORE CHEST TUBE WOULD NEED TO BE PLACED. PATIENT GAVE CONSENT FOR PROCEDURE. 0800 - 2MG OF VERSED ADMINISTERED IV 0812 - 50 MG OF FENTANYL IV 0828 - 2MG OF VERSED IV 0830 - CHEST TUBE IN PLACE. TUBE SECURED WITH SUTURES, VASELINE GAUZE, DRAIN TUBE GAUZED, AND FOAM TAPE. 0835 - 50MG OF FENTANYL IV 0845 - CHEST XRAY OBTAINED TO CHECK FOR PLACEMENT. DR CASTAÑEDA AND DR LAKHANI AT BEDSIDE, CONFIRMED PLACEMENT. CHEST TUBE HOOKED UP TO LOW INTERMITTENT SUCTION PER ORDERS. Addendum: 07/28/20 at 1539 by SINDHU HAWKINS RN 600 ML OF BLOODY DRAINED COLLECTED IMMEDIATELY AFTER TUBE PLACEMENT.
--- NOTE | 2020-07-28 15:29 | NUR ---
CM/SS late entry for 07/27. CM/SS visited with patient regarding concerns about financial. Home: Patient lives at home with his . Financial: The patient reports that he is currently employed at [employer]. The patient states they are "barley able to afford the basic needs and food". The patients is not currently working and not receiving unemployment. The patient states he does not have a disability and does not receive Medicaid or food stamps. CM/SS informed patient that [facility] Financial services will discuss the financial assistance application/ axel with patient. He verbalized understanding. 07/28 CM/SS reached out to Financial Services. Rose reports she spoke with the patient this a.m. and they have started the financial assistance application. CM/SS will continue to follow.
--- NOTE | 2020-07-28 16:34 | Consultation - Surgery ---
History of Present Illness History of Present Illness Patient Consulted On(nagi/time) 07/28/20 08:59 Date Seen by Provider: Jul 28, 2020 Time Seen by Provider: 08:59 History of Present Illness Consult requested by Dr. Llanes for right hemopneumothorax. Patient is a 60 year old male who was having more difficult in breathing day before admission. He went to ER in [facility] and was found to have a right pneumothorax and a thoravent was placed at that time. He was having shortness of breath worsening with breathing. Denies any trauma. Patient pain varied, moderate to severe. Denies any significant medical history, but longstanding smoking history. He was transferred to [place]. Patient had a ct scan on 07/25 showing right hydropneumothorax. Patient thoravent was not draining as well as expected getting clots therefore Dr. Neville place a large bore chest tube right chest today. The thoravent was removed. Patient states not having too much pain today. Breathing a little better. Chest tube had a blood drainage at least 500 out today thus far. Allergies and Home Medications Allergies Coded Allergies: No Known Drug Allergies (Unverified , 07/25/20) Home Medications Acetaminophen 500 Mg Tablet, 1,000 MG PO Q8H PRN for PAIN-MILD (1-4), (Reported) Calcium Carbonate 300 Mg Tab.chew, 300-600 MG PO UD PRN for HEARTBURN, (Reported) Cholecalciferol (Vitamin D3) 25 Mcg Tablet, 25 MCG PO DAILY, (Reported) Multivitamin 1 Each Tablet, 1 EACH PO DAILY, (Reported) Patient Home Medication List Home Medication List Reviewed: Yes Past Aiqtobm-Lhljjw-Gxqszi Hx Patient Social History Alcohol Use: Denies Use Recreational Drug Use: No Smoking Status: Current Everyday Smoker Type Used: Cigarettes 2nd Hand Smoke Exposure: Yes Recent Foreign Travel: No Contact w/Someone Who Travel: No Recent Infectious Disease Expo: No Recent Hopitalizations: No Seasonal Allergies Seasonal Allergies: No Surgeries History of Surgeries: Yes (hernia) Respiratory History of Respiratory Disorde: No Cardiovascular History of Cardiac Disorders: No Neurological History of Neurological Disord: No Genitourinary History of Genitourinary Disor: No Gastrointestinal History of Gastrointestinal Di: No Musculoskeletal History of Musculoskeletal Dis: No Endocrine History of Endocrine Disorders: No HEENT History of HEENT Disorders: No Cancer History of Cancer: No Psychosocial History of Psychiatric Problem: No Integumentary History of Skin or Integumenta: No Blood Transfusions History of Blood Disorders: No Adverse Reaction to a Blood Tr: No Reviewed Nursing Assessment Reviewed/Agree w Nursing PMH: Yes Family Medical History Significant Family History: No Pertinent Family Hx Review of Systems-General Constitutional: No fever, No weakness EENTM: No blurred vision, No double vision Respiratory: dyspnea on exertion, short of breath Gastrointestinal: No abdominal pain, No dysphagia, No heartburn Genitourinary: No decreased output, No discharge Musculoskeletal: No back pain, No joint pain Skin: No change in color, No change in hair/nails Psychiatric/Neurological: Denies Anxiety, Denies Depressed, Denies Emotional Problems All Other Systems Reviewed Negative Unless Noted: Yes (Negative excepted noted.) Physical Exam-General Problems Physical Exam Vital Signs Vital Signs - First Documented 07/25/20 07/25/20 07:35 11:10 Temp 36.0 Pulse 97 Resp 16 B/P (MAP) 134/76 (95) Pulse Ox 93 O2 Delivery High Flow N/C O2 Flow Rate 6.00 Capillary Refill : Less Than 3 Seconds General Appearance: no apparent distress, thin HEENT: PERRL/EOMI, normal ENT inspection Neck: non-tender, full range of motion, supple Respiratory: lungs clear, other (right chest tube, subcutanous emphysema over right chest) Cardiovascular: regular rate, rhythm, no edema Gastrointestinal: non tender, soft, no organomegaly Rectal: deferred Back: no CVA tenderness Extremities: non-tender, normal inspection Neurologic/Psychiatric: alert, normal mood/affect, oriented x 3 Skin: normal color, warm/dry Lymphatic: no adenopathy Data Review Labs Laboratory Tests 07/28/20 03:12: White Blood Count 10.6, Red Blood Count 3.01L, Hemoglobin 8.3L, Hematocrit 26L, Mean Corpuscular Volume 88, Mean Corpuscular Hemoglobin 28, Mean Corpuscular Hemoglobin Concent 31L, Red Cell Distribution Width 13.7, Platelet Count 234, Mean Platelet Volume 9.1, Immature Granulocyte % (Auto) 0, Neutrophils (%) (Auto) 64, Lymphocytes (%) (Auto) 23, Monocytes (%) (Auto) 8, Eosinophils (%) (Auto) 5, Basophils (%) (Auto) 0, Neutrophils # (Auto) 6.7, Lymphocytes # (Auto) 2.4, Monocytes # (Auto) 0.9, Eosinophils # (Auto) 0.6H, Basophils # (Auto) 0.0, Immature Granulocyte # (Auto) 0.0, Sodium Level 134L, Potassium Level 4.6, Chloride Level 96L, Carbon Dioxide Level 30, Anion Gap 8, Blood Urea Nitrogen 14, Creatinine 0.68, Estimat Glomerular Filtration Rate > 60, BUN/Creatinine Ratio 21, Glucose Level 96, Calcium Level 8.7, Phosphorus Level 3.4, Magnesium Level 1.8 Microbiology 07/25/20 MRSA Screen - Final, Complete MRSA not isolated Assessment/Plan Assessment/Plan Assessment/Plan Spontaneous right hemopneumothorax-Chest tube in place bullous disease or right upper lung Anemia Tobacco abuse chest tube in place with bloody drainage, hgb has been stable I do not feel this is actively bleeding follow hgb and chest tube drainage No surgical intervention at this time Clinical Quality Measures DVT/VTE Risk/Contraindication: Risk Factor Score Per Nursin RFS Level Per Nursing on Admit: 3=High LESLIE LAKHANI DO Jul 28, 2020 16:34
[2020-07-28] MEDS: morphine INJ 4 MG/ML 1 ML (VIAL/SYRINGE) IVP PRN ×2 (16:49→23:40)
--- NOTE | 2020-07-29 02:03 | Pulmonary Progress Note ---
XIMENA BROWN MED STUDENT 07/29/20 0202: Subjective Date Seen by a Provider: Jul 29, 2020 Time Seen by a Provider: 02:45 Subjective/Events-last exam Patient states breathing is much improved and feels as though he can breathe deeper. Denies any pain at this time save for around the chest tube and the d/c'd pleurex drain tube site. Patient states he feels great and wants to go home. Sepsis Event Evaluation Height, Weight, BMI Height: '" Weight: lbs. oz. kg; 18.25 BMI Method: Exam Exam Vital Signs Date Time Temp Pulse Resp B/P (MAP) Pulse Ox O2 Delivery O2 Flow Rate FiO2 07/28/20 23:44 99 High Flow N/C 6.00 07/28/20 23:43 36.3 07/28/20 23:00 58 38 135/77 99 High Flow N/C 6.00 07/28/20 22:00 53 115/56 100 High Flow N/C 6.00 07/28/20 21:00 65 145/77 98 High Flow N/C 6.00 07/28/20 20:00 67 21 154/73 98 High Flow N/C 6.00 07/28/20 20:00 99 High Flow N/C 6.00 07/28/20 19:35 37.2 07/28/20 19:00 70 07/28/20 19:00 64 21 143/69 98 High Flow N/C 6.00 07/28/20 18:00 65 88 164/75 98 High Flow N/C 6.00 07/28/20 17:00 66 30 158/89 99 High Flow N/C 6.00 07/28/20 16:00 66 155/71 99 High Flow N/C 6.00 07/28/20 16:00 36.8 07/28/20 15:40 99 High Flow N/C 6.00 07/28/20 15:00 79 43 139/77 97 High Flow N/C 6.00 07/28/20 12:35 70 07/28/20 12:22 37.0 07/28/20 12:00 99 High Flow N/C 6.00 07/28/20 09:00 118 111/77 100 High Flow N/C 6.00 07/28/20 08:00 67 108/95 100 High Flow N/C 6.00 07/28/20 08:00 96 High Flow N/C 6.00 07/28/20 07:16 36.8 07/28/20 07:15 68 07/28/20 07:00 90 127/98 97 High Flow N/C 6.00 07/28/20 06:00 69 19 125/67 96 High Flow N/C 6.00 07/28/20 05:00 67 28 130/71 95 High Flow N/C 6.00 07/28/20 04:00 96 High Flow N/C 6.00 07/28/20 04:00 78 33 138/82 96 High Flow N/C 6.00 07/28/20 03:00 67 27 117/61 95 High Flow N/C 6.00 07/28/20 02:00 73 17 112/67 97 High Flow N/C 6.00 I & O 07/29/20 07:00 Intake Total 2240 ml Output Total 3250 ml Balance -1010 ml Height & Weight Height: '" Weight: lbs. oz. kg; 18.25 BMI Method: General Appearance: No Apparent Distress, Other (drowsy from sedation) Capillary Refill: Less Than 3 Seconds Gastrointestinal: soft, no organomegaly Extremity: Normal Inspection, Non Tender, No Pedal Edema Neurologic/Psychiatric: Alert, Oriented x3 Skin: Normal Color, Warm/Dry Lymphatic: No Adenopathy Results Lab Laboratory Tests 07/27/20 03:04 07/28/20 03:12 Assessment/Plan Assessment/Plan Acute spont PTX s/p Pleurex chest tube. -CT of chest with contrast reviewed -Chest tube placed -significant blood drainage with clear tension -Surgery consulted, Dr. Cottrell recommends no surgical intervention at this time -portible cxr shows significant decrease of tension hemopneumothorax, no adverse developments -will monitor for continued output -per virtual report from [employer]: no significant visceral pleural thickening identified to suggest trapped lung right pleural effusion -BNP - is normal Anemia -Monitor -Hold lovenox for now Leukocytosis-- resolved. Doubt pna -D/C Rocephin, and azithromycin -PCT- Normal Severe COPD/Emphysema Tobacco use -He has smoked since 13yo WEI CASTAÑEDA DO 07/29/20 0317: Assessment/Plan Assessment/Plan Acute spont PTX s/p Pleurex chest tube. -CT of chest with contrast reviewed -Chest tube placed -Surgery consulted, Dr. Cottrell recommends no surgical intervention at this time -portible cxr shows significant decrease of tension hemopneumothorax, no adverse developments -will monitor for continued output -per virtual report from [employer]: no significant visceral pleural thickening identified to suggest trapped lung right pleural effusion -BNP - is normal Anemia -Monitor -Hold lovenox for now Leukocytosis-- resolved. Doubt pna -D/C Rocephin, and azithromycin -PCT- Normal Severe COPD/Emphysema Tobacco use -He has smoked since 13yo XIMENA BROWN MED STUDENT Jul 29, 2020 02:02 WEI CASTAÑEDA DO Jul 29, 2020 03:17
[2020-07-29 02:13] LABS: BASOPHILS % (AUTO) 0 % (0-10); EOSINOPHILS # (AUTO) 0.5 10^3/uL (0.0-0.3); EOSINOPHILS % (AUTO) 6 % (0-10); HEMATOCRIT 26 % (40-54); HEMOGLOBIN 8.2 g/dL (13.3-17.7); LYMPHOCYTES # (AUTO) 2.3 10^3/uL (1.0-4.0); LYMPHOCYTES % (AUTO) 24 % (12-44); MEAN CORPUSCULAR HEMOGLOBIN 28 pg (25-34); MEAN CORPUSCULAR HGB CONC 32 g/dL (32-36); MEAN CORPUSCULAR VOLUME 87 fL (80-99); MEAN PLATELET VOLUME 8.9 fL (9.0-12.2); MONOCYTES # (AUTO) 0.7 10^3/uL (0.0-1.0); MONOCYTES % (AUTO) 7 % (0-12); NEUTROPHILS % (AUTO) 62 % (42-75); PLATELET COUNT 262 10^3/uL (130-400); WHITE BLOOD COUNT 9.6 10^3/uL (4.3-11.0)
[2020-07-29 02:31] LABS: CHLORIDE 95 MMOL/L (98-107); POTASSIUM 4.5 MMOL/L (3.6-5.0); SODIUM 135 MMOL/L (135-145)
[2020-07-29 02:32] LABS: CALCIUM 8.8 MG/DL (8.5-10.1)
[2020-07-29 02:33] LABS: GLUCOSE 100 MG/DL (70-105)
[2020-07-29 02:34] LABS: CARBON DIOXIDE 31 MMOL/L (21-32)
[2020-07-29 02:36] LABS: CREATININE SERUM 0.74 MG/DL (0.60-1.30); GFR ESTIMATED > 60; PHOSPHORUS 3.4 MG/DL (2.3-4.7)
[2020-07-29 02:37] LABS: BUN/CREATININE RATIO 20
[2020-07-29 02:39] LABS: MAGNESIUM 1.9 MG/DL (1.6-2.4)
[2020-07-29] MEDS: KCL 20 MEQ TAB (K-DUR) PO SCH (04:39)
[2020-07-29] MEDS: MAGNESIUM 1 GM/100 ML IVPB 100 ML IV SCH (04:39)
[2020-07-29] MEDS: POTASSIUM CL 10MEQ/50ML IVPB 50 ML IV SCH (04:39)
--- NOTE | 2020-07-29 08:41 | Progress Note - Hospitalist ---
Subjective HPI/CC On Admission Date Seen by Provider: Jul 29, 2020 Time Seen by Provider: 08:40 Shashank Todd is a 60 year old male with history of tobacco abuse who presented with chest pain. He reports that the pain is worse with inspiration and movement. The pain started yesterday while working. The pain radiates around his right side to his back. There is associated dyspnea. He denies fevers. He denies cough. He denies abdominal pain, nausea, and vomiting. He denies hemoptysis. He does not take any medicines daily. He does not have any known medical problems. He is a current smoker, but says he is going to quit because of this issue. Subjective/Events-last exam Pt reports feeling much better today. Breathing is improved. No complaints. Wondering when chest tube will be able to be removed. Objective Exam Vital Signs Vital Signs Date Time Temp Pulse Resp B/P (MAP) Pulse Ox O2 Delivery O2 Flow Rate FiO2 07/29/20 06:00 60 142/80 98 High Flow N/C 6.00 07/29/20 04:03 36.6 07/29/20 01:00 16 Capillary Refill : Less Than 3 Seconds General Appearance: No Apparent Distress, WD/WN Respiratory: Lungs Clear, No Accessory Muscle Use, No Respiratory Distress Cardiovascular: Regular Rate, Rhythm, No Murmur Gastrointestinal: Normal Bowel Sounds, Non Tender, Soft Neurologic/Psychiatric: Alert, Oriented x3 Results/Procedures Lab Laboratory Tests 07/29/20 01:51 Patient resulted labs reviewed. Imaging: Reviewed Imaging Report Assessment/Plan Assessment and Plan Assess & Plan/Chief Complaint Acute respiratory failure with hypoxia Spontaneous hemopneumothorax Chest tube in place Anemia Pulmonology consulted, appreciate assistance CXR improved since chest tube placed yesterday, 650mL drained Continue antibiotics Supplemental oxygen Hgb stable at 8.2, continue to monitor Surgery consulted, appreciate recs Current smoker Nicotine gum as needed BMI less than 20 General diet plus Ensure DVT prophylaxis: SCDs Diagnosis/Problems Diagnosis/Problems (1) Acute respiratory failure with hypoxia (2) Body mass index (BMI) of 19 or less in adult (3) Hydropneumothorax (4) Chest tube in place (5) Pneumothorax, right Status: Acute (6) Current smoker Clinical Quality Measures DVT/VTE Risk/Contraindication: Risk Factor Score Per Nursin RFS Level Per Nursing on Admit: 3=High MAEGAN,ALICIA M MD Jul 29, 2020 08:41
--- NOTE | 2020-07-29 08:52 | Diagnostic Imaging Report ---
INDICATION: Dyspnea COMPARISON: 07/28 FINDINGS: Right chest tube is present. Subcutaneous emphysema similar if not slightly decreased. No detectable pneumothorax. Air trapping and COPD with focal eventration of the left hemidiaphragm stable. Some chronic interstitial opacities are present in the lungs the more acute upper lobe infiltrates have decreased. IMPRESSION: At least partial clearance of upper lobe infiltrates, background air trapping and chronic interstitial changes present gas in the chest wall slightly diminished. No detectable pneumothorax. Dictated by: Dictated on workstation # [id number]
--- NOTE | 2020-07-29 09:31 | Physical Therapy Evaluation ---
PT Evaluation-General Medical Diagnosis Admission Date Jul 25, 2020 at 11:10 Medical Diagnosis: Hydropneumothorax Onset Date: Jul 25, 2020 Therapy Diagnosis Therapy Diagnosis: Debility Precautions Precautions/Isolations: Standard Precautions Weight Bear Status Right Lower Extremity: Right Weight Bearing/Tolerated Left Lower Extremity: Left Weight Bearing/Tolerated Referral Physician: Kelin Reason for Referral: Evaluation/Treatment Medical History Pertinent Medical History: Smoking Reviewed History: Yes Social History Home: Single Level Current Living Status: Spouse Entry Into Home: Stairs With Railing PT Steps Into Home: 3 PT Steps Inside Home: 1 Prior Prior Level of Function SCALE: Activities may be completed with or without assistive devices. 2-Tmvvyiieav-sdqdlsu completes the activity by him/herself with no assistance from a helper. 5-Set-up or Clean-up Assistance-helper sets up or cleans up; patient completes activity. Ursa assists only prior to or following the activity. 4-Supervision or Touching Assistance-helper provides verbal cues and/or touching/steadying and/or contact guard assistance as patient completes activity. Assistance may be provided throughout the activity or intermittently. 3-Partial/Moderate Assistance-helper does LESS THAN HALF the effort. Ursa lifts, holds or supports trunk or limbs, but provides less than half the effort. 2-Substantial/Maximal Assistance-helper does MORE THAN HALF the effort. Ursa lifts or holds trunk or limbs and provides more than half the effort. 4-Uhvdgdcuo-gotwna does ALL the effort. Patient does none of the effort to complete the activity. Or, the assistance of 2 or more helpers is required for the patient to complete the activity. If activity was not attempted, code reason: 7-Patient Refused. 9-Not Applicable-not attempted and the patient did not perform the activity before the current illness, exacerbation or injury. 10-Not Attempted due to Environmental Limitations-(lack of equipment, weather restraints, etc.). 88-Not Attempted due to Medical Conditions or Safety Concerns. Bed Mobility: 6 Transfers (B,C,W/C): 6 Gait: 6 Stairs: 6 Wheelchair Mobility: 9 Indoor Mobility (Ambulation): Independent Stairs: Independent Prior Devices Use: None PT Evaluation-Current Subjective Patient presents supine in bed. Pt agrees to PT and is excited to get up. Pt voices no complaints of pain. Pt/Family Goals Return home Objective Patient Orientation: Person, Place, Time, Eyes Open, Situation Attachments: Chest Tube, Oxygen ROM/Strength ROM Lower Extremities WFL Strength Lower Extremities B hip flex, knee flex/ext: 5/5 Sensory Vision: Functional Hearing: Functional Sensation Right Lower Extremit: Intact Sensation Left Lower Extremity: Intact Sensation Lower Extremities BLE sensation intact to light touch L2-S2 Transfers Lying to Sitting/Side of Bed(Q: 6 Sit to Stand (QC): 6 Chair/Zwb-em-Oqkhx Xfer(QC): 6 Gait Does the Patient Walk?: Yes Mode of Locomotion: Walk Anticipated Mode of Locomotion: Walk Walk 10 feet (QC): 4 Distance: 25' Gait Assistive Device: None Comments/Gait Description SBA. Pt is limited in distance to walk by chest tube; pt walks around bed in room. Wheelchair Training Does the Pt Use a Wheelchair?: No Balance Sitting Static: Normal Sitting Dynamic: Normal Standing Static: Normal Standing Dynamic: Normal Assessment/Needs Pt is able get out of bed and stand without assistance; but complied to gait belt use for ambulation. Pt jokes around a little and does a little dance to show how good he is doing. Rehab Potential: Good PT Nursing Home Goals Oracle Engineer Goals PT Oracle Engineer Goals Time Frame: Aug 05, 2020 Roll Left & Right (QC): 6 Sit to Lying (QC): 6 Lying-Sitting on Side/Bed(QC): 6 Sit to Stand (QC): 6 Chair/Peq-cp-Dwxnr Xfer(QC): 6 Toilet Transfer (QC): 6 Car Transfer (QC): 6 Does the Patient Walk: Yes Walk 10 feet (QC): 6 Walk 50ft with 2 Turns (QC): 6 Walk 150 ft (QC): 6 Walking 10ft on Uneven Surface: 6 1 Step (curb) (QC): 6 4 Steps (QC): 6 12 Steps (QC): 6 Picking up an Object (QC): 6 Does the Pt use WC or Scooter?: No Wheel 50 feet with 2 turns (QC: 9 Wheel 150 feet: 9 PT Plan Problem List Problem List: Activity Tolerance, Functional Strength, Safety, Balance, Gait, Transfer, Bed Mobility, ROM Treatment/Plan Treatment Plan: Continue Plan of Care Treatment Plan: Education, Functional Activity Alberto, Functional Strength, Gait, Safety, Therapeutic Exercise, Transfers Treatment Duration: Aug 05, 2020 Frequency: 6 times per week Estimated Hrs Per Day: .25 hour per day Patient and/or Family Agrees t: Yes Safety Risks/Education Patient Education: Gait Training, Transfer Techniques, Correct Positioning, Safety Issues Teaching Recipient: Patient Teaching Methods: Demonstration, Discussion Response to Teaching: Reinforcement Needed Discharge Recommendations Plan Pt will work on gait training, balance training, and therapeutic exercises. Time/GCodes Time In: 08 Time Out: 829 Total Billed Treatment Time: 11 Total Billed Treatment 1 visit EVL 11' MINH WEBSTER PT Jul 29, 2020 09:31
[2020-07-29] MEDS: KETOROLAC 15 MG/ML VIAL IVP PRN ×2 (10:11→16:40)
[2020-07-29] MEDS ORDERED: LIDOCAINE 1% INJ 20 ML 20 ML VIAL ONE (10:34)
--- NOTE | 2020-07-29 14:41 | Diagnostic Imaging Report ---
INDICATION: Chest tube adjustment. Time of exam 2:09 PM Correlation is made with prior study earlier same day. Heart size stable. Right chest tube remains in place. No pneumothorax is identified. Subcutaneous emphysema along the right chest wall does appear to be diminished since prior. COPD and interstitial changes are again noted. IMPRESSION: Overall stable appearance of chest when compared to examination earlier the same day. Dictated by: Dictated on workstation # [id number]
--- NOTE | 2020-07-29 15:48 | NUR ---
CM/SS follow up. The patient reports that he is doing okay today. He was having pain with his chest tube and Dr. Cottrell adjusted it. He states it is much better now. CM/SS discussed the financial service visit. He reports he cannot remember much. CM/SS informed him he filled out the application for financial assistance. Patient verbalized understanding. Patient states that even though it says workman's comp for insurance that is not current. He did have that about 11 weeks ago for a hernia repair. CM/SS provided patient with application for food stamps. Patient verbalized understanding. No further questions.
--- NOTE | 2020-07-29 17:46 | Progress Note - Surgery ---
LIDYA WALLS MED STUDENT 07/29/20 1746: Subjective Date Seen by a Provider: Jul 29, 2020 Time Seen by a Provider: 07:00 Subjective/Events-last exam At time of initial exam this morning, pt states he feels much improved with chest tube in place and can breathe better. Pt had 650 mL of output from tube yesterday, but only 40 mL so far today. No other complaints. Objective Exam Vital Signs Date Time Temp Pulse Resp B/P (MAP) Pulse Ox O2 Delivery O2 Flow Rate FiO2 07/29/20 15:30 37.0 07/29/20 12:40 69 07/29/20 12:23 36.7 07/29/20 10:00 75 30 96 High Flow N/C 6.00 07/29/20 09:00 76 32 98 High Flow N/C 6.00 07/29/20 08:00 36.6 07/29/20 08:00 61 136/68 100 High Flow N/C 6.00 07/29/20 07:30 High Flow N/C 6.00 07/29/20 07:00 50 137/90 99 High Flow N/C 6.00 07/29/20 06:43 66 07/29/20 06:00 60 142/80 98 High Flow N/C 6.00 07/29/20 05:00 58 146/70 100 High Flow N/C 6.00 07/29/20 04:03 36.6 07/29/20 04:00 56 134/68 99 High Flow N/C 6.00 07/29/20 04:00 99 High Flow N/C 6.00 07/29/20 03:00 54 128/67 99 High Flow N/C 6.00 07/29/20 02:00 53 130/58 100 High Flow N/C 6.00 07/29/20 01:00 58 16 114/66 99 High Flow N/C 6.00 07/29/20 01:00 60 07/29/20 00:00 55 31 141/69 98 High Flow N/C 6.00 07/28/20 23:44 99 High Flow N/C 6.00 07/28/20 23:43 36.3 07/28/20 23:00 58 38 135/77 99 High Flow N/C 6.00 07/28/20 22:00 53 115/56 100 High Flow N/C 6.00 07/28/20 21:00 65 145/77 98 High Flow N/C 6.00 07/28/20 20:00 67 21 154/73 98 High Flow N/C 6.00 07/28/20 20:00 99 High Flow N/C 6.00 07/28/20 19:35 37.2 07/28/20 19:00 70 07/28/20 19:00 64 21 143/69 98 High Flow N/C 6.00 07/28/20 18:00 65 88 164/75 98 High Flow N/C 6.00 I & O 07/29/20 07:00 Intake Total 2740 ml Output Total 3250 ml Balance -510 ml Capillary Refill : Less Than 3 Seconds General Appearance: No Apparent Distress, Thin HEENT: PERRL/EOMI, Normal ENT Inspection Neck: Normal Inspection, Supple Respiratory: No Accessory Muscle Use, No Respiratory Distress, Crackles (right side) Cardiovascular: Regular Rate, Rhythm, No Murmur Gastrointestinal: non tender, soft Extremity: Normal Inspection, Non Tender, No Pedal Edema Neurologic/Psychiatric: Alert, No Motor/Sensory Deficits, Normal Mood/Affect Skin: Normal Color, Warm/Dry Lymphatic: No Adenopathy Results Lab Laboratory Tests 07/29/20 01:51: White Blood Count 9.6, Red Blood Count 2.97L, Hemoglobin 8.2L, Hematocrit 26L, Mean Corpuscular Volume 87, Mean Corpuscular Hemoglobin 28, Mean Corpuscular Hemoglobin Concent 32, Red Cell Distribution Width 13.6, Platelet Count 262, Mean Platelet Volume 8.9L, Immature Granulocyte % (Auto) 0, Neutrophils (%) (Auto) 62, Lymphocytes (%) (Auto) 24, Monocytes (%) (Auto) 7, Eosinophils (%) (Auto) 6, Basophils (%) (Auto) 0, Neutrophils # (Auto) 6.0, Lymphocytes # (Auto) 2.3, Monocytes # (Auto) 0.7, Eosinophils # (Auto) 0.5H, Basophils # (Auto) 0.0, Immature Granulocyte # (Auto) 0.0, Sodium Level 135, Potassium Level 4.5, Chloride Level 95L, Carbon Dioxide Level 31, Anion Gap 9, Blood Urea Nitrogen 15, Creatinine 0.74, Estimat Glomerular Filtration Rate > 60, BUN/Creatinine Ratio 20, Glucose Level 100, Calcium Level 8.8, Phosphorus Level 3.4, Magnesium Level 1.9 Microbiology 07/25/20 MRSA Screen - Final, Complete MRSA not isolated Procedures At approx 10:30, pt was complaining of sharp, stinging chest wall pain on the right side near the chest tube. On examination of the tube, it appeared to be moving and there was laxity in the sutures. Pt was re-prepped and 3 mL of lidocaine was injected around the chest tube and the tube was resutured. Pt tolerated well and reported improvement in his pain. Assessment/Plan Assessment/Plan Assessment/Plan Spontaneous right hemopneumothorax-Chest tube in place persistent air leak bullous disease or right upper lung Anemia-stable at 8.2 Tobacco abuse chest tube in place with bloody drainage, hgb has been stable I do not feel this is actively bleeding follow hgb and chest tube drainage No surgical intervention at this time Clinical Quality Measures DVT/VTE Risk/Contraindication: Risk Factor Score Per Nursin RFS Level Per Nursing on Admit: 3=High LESLIE COTTRELL DO 07/29/202040: Subjective Subjective/Events-last exam Patient breathing better. Having severe pain at insertion site of right chest tube. Started after physical therapy he states. Air leak in atrium. Chest x ray improved. Hgb stable. Objective Exam General Appearance: Anxious, Thin HEENT: PERRL/EOMI, Normal ENT Inspection Neck: Normal Inspection, Supple Respiratory: No Accessory Muscle Use, No Respiratory Distress, Crackles (right side), Other (tenderness right chest) Cardiovascular: Regular Rate, Rhythm, No JVD Gastrointestinal: non tender, soft Extremity: Normal Inspection, Non Tender Neurologic/Psychiatric: Alert, Oriented x3, No Motor/Sensory Deficits, Normal Mood/Affect Skin: Normal Color, Warm/Dry Lymphatic: No Adenopathy Assessment/Plan Assessment/Plan Assessment/Plan Spontaneous right hemopneumothorax-Chest tube in place persistent air leak bullous disease or right upper lung Anemia-stable at 8.2 Tobacco abuse Continue atrium to suction The chest tube suture was loose and i beleive the right chest wall tenderness if from slight movment of the chest tube. The area was injected with 4 mL of 1% lidocaine after it was prepped in sterile fashion. Using 1-0 Prolene U-stitch placed and then secured tube. Area was washed and dried and sterile bandage applied. Chest x ray following resuturing to make sure still in good position. Supervisory-Addendum Brief Verification & Attestation Participated in pt care: history, MDM, physical Personally performed: exam, history, MDM, supervision of care Care discussed with: Medical Student Procedures: n/a Results interpretation: Verified all documentation Verification and Attestation of Medical Student E/M Service A medical student performed and documented this service in my presence. I reviewed and verified all information documented by the medical student and made modifications to such information, when appropriate. I personally performed the physical exam and medical decision making. Leslie Cottrell, Jul 29, 2020,20:41 LIDYA WALLS MED STUDENT Jul 29, 2020 17:46 LESLIE COTTRELL DO Jul 29, 2020 20:41
[2020-07-29] MEDS: morphine INJ 4 MG/ML 1 ML (VIAL/SYRINGE) IVP PRN (22:14)
[2020-07-30] MEDS: KETOROLAC 15 MG/ML VIAL IVP PRN ×2 (00:18→11:46)
[2020-07-30] MEDS: morphine INJ 4 MG/ML 1 ML (VIAL/SYRINGE) IVP PRN ×2 (01:06→17:36)
[2020-07-30] MEDS: LORazepam 0.5 MG (ATIVAN) TABLET PO PRN ×2 (02:50→22:30)
--- NOTE | 2020-07-30 03:53 | Pulmonary Progress Note ---
KEVINXIMENA MED STUDENT 07/30/20 0353: Subjective Date Seen by a Provider: Jul 30, 2020 Time Seen by a Provider: 03:45 Subjective/Events-last exam Pateint reported significant pain yesterday om right chest, Dr. Cottrell evaluated the patient for his complaint and found the chest tube had come slightly loose, likely causing the pain with patient's movement. Dr. Cottrell secured the tube with provided significant improvement. Patient now laying comfortably with only mild pain in R chest, stating it feels controlled by medication. No complaints otherwise Sepsis Event Evaluation Height, Weight, BMI Height: '" Weight: lbs. oz. kg; 18.25 BMI Method: Exam Exam Vital Signs Date Time Temp Pulse Resp B/P (MAP) Pulse Ox O2 Delivery O2 Flow Rate FiO2 07/30/20 03:17 High Flow N/C 3.00 07/30/20 01:00 60 07/30/20 00:00 63 133/69 99 High Flow N/C 6.00 07/29/20 23:43 36.6 07/29/20 23:00 95 High Flow N/C 6.00 07/29/20 23:00 60 136/62 99 High Flow N/C 6.00 07/29/20 22:00 64 127/90 100 High Flow N/C 6.00 07/29/20 21:00 63 141/66 100 High Flow N/C 6.00 07/29/20 20:02 High Flow N/C 6.00 07/29/20 20:00 70 126/70 97 High Flow N/C 6.00 07/29/20 19:50 37.1 07/29/20 19:00 60 141/98 100 High Flow N/C 6.00 07/29/20 19:00 60 07/29/20 17:15 68 149/72 100 High Flow N/C 6.00 07/29/20 15:30 37.0 07/29/20 12:40 69 07/29/20 12:23 36.7 07/29/20 10:00 75 30 96 High Flow N/C 6.00 07/29/20 09:00 76 32 98 High Flow N/C 6.00 07/29/20 08:00 36.6 07/29/20 08:00 61 136/68 100 High Flow N/C 6.00 07/29/20 07:30 High Flow N/C 6.00 07/29/20 07:00 50 137/90 99 High Flow N/C 6.00 07/29/20 06:43 66 07/29/20 06:00 60 142/80 98 High Flow N/C 6.00 07/29/20 05:00 58 146/70 100 High Flow N/C 6.00 07/29/20 04:03 36.6 07/29/20 04:00 56 134/68 99 High Flow N/C 6.00 07/29/20 04:00 99 High Flow N/C 6.00 I & O 07/30/20 07:00 Intake Total 2838 ml Output Total 3375 ml Balance -537 ml Height & Weight Height: '" Weight: lbs. oz. kg; 18.25 BMI Method: General Appearance: Anxious, Thin HEENT: PERRL/EOMI; No Scleral Icterus (L), No Scleral Icterus (R) Neck: Normal Inspection, Non Tender, Supple Respiratory: No Accessory Muscle Use, No Respiratory Distress, Crackles (right side), Other (tenderness right chest around chest tube placement) Cardiovascular: Regular Rate, Rhythm, Normal Peripheral Pulses Capillary Refill: Less Than 3 Seconds Gastrointestinal: non tender, soft, no organomegaly, no pulsatile mass Extremity: Normal Inspection, Non Tender, No Calf Tenderness Neurologic/Psychiatric: Alert, Oriented x3, No Motor/Sensory Deficits, Normal Mood/Affect Skin: Normal Color, Warm/Dry Results Lab Laboratory Tests 07/29/20 01:51 Assessment/Plan Assessment/Plan Acute spont PTX s/p Pleurex chest tube. -CT of chest with contrast reviewed -Chest tube placed -Surgery consulted, Dr. Cottrell recommends no surgical intervention at this time -portable cxr shows significant decrease of tension hemopneumothorax, no adverse developments -will monitor for continued output -per virtual report from [facility]: no significant visceral pleural thickening identified to suggest trapped lung -tube came loose causing patient some discomfort, resecured by Dr. Cottrell right pleural effusion -BNP - is normal Anemia -Monitor -Hold lovenox for now Leukocytosis-- resolved. Doubt pna -D/C Rocephin, and azithromycin -PCT- Normal PT/OT -patient will continue to work with PT to build stamina especially for walking Severe COPD/Emphysema Tobacco use -He has smoked since 13yo WEI CASTAÑEDA DO 07/30/20 0445: Subjective Time Seen by a Provider: 04:43 Assessment/Plan Assessment/Plan Acute spont PTX s/p Pleurex chest tube. -CT of chest with contrast reviewed -Chest tube placed -Will change chest tube to water seal and repeat CXR in 4hours. -will monitor for continued output right pleural effusion -BNP - is normal Anemia -Monitor -Hold lovenox for now Leukocytosis-- resolved. Doubt pna -D/C Rocephin, and azithromycin -PCT- Normal PT/OT -patient will continue to work with PT to build stamina especially for walking Severe COPD/Emphysema Tobacco use -He has smoked since 13yo XIMENA BROWN MED STUDENT Jul 30, 2020 03:53 WEI CASTAÑEDA DO Jul 30, 2020 04:45
[2020-07-30 04:07] LABS: BASOPHILS % (AUTO) 0 % (0-10); EOSINOPHILS # (AUTO) 0.6 10^3/uL (0.0-0.3); EOSINOPHILS % (AUTO) 7 % (0-10); HEMATOCRIT 26 % (40-54); HEMOGLOBIN 8.4 g/dL (13.3-17.7); LYMPHOCYTES # (AUTO) 1.7 10^3/uL (1.0-4.0); LYMPHOCYTES % (AUTO) 19 % (12-44); MEAN CORPUSCULAR HEMOGLOBIN 28 pg (25-34); MEAN CORPUSCULAR HGB CONC 32 g/dL (32-36); MEAN CORPUSCULAR VOLUME 87 fL (80-99); MEAN PLATELET VOLUME 8.7 fL (9.0-12.2); MONOCYTES # (AUTO) 0.8 10^3/uL (0.0-1.0); MONOCYTES % (AUTO) 9 % (0-12); NEUTROPHILS # (AUTO) 5.9 10^3/uL (1.8-7.8); NEUTROPHILS % (AUTO) 65 % (42-75); PLATELET COUNT 285 10^3/uL (130-400)
[2020-07-30 04:07] LABS: CHLORIDE 96 MMOL/L (98-107); POTASSIUM 3.9 MMOL/L (3.6-5.0); SODIUM 136 MMOL/L (135-145)
[2020-07-30 04:09] LABS: GLUCOSE 99 MG/DL (70-105)
[2020-07-30 04:10] LABS: CARBON DIOXIDE 29 MMOL/L (21-32)
[2020-07-30 04:13] LABS: CREATININE SERUM 0.68 MG/DL (0.60-1.30); GFR ESTIMATED > 60
[2020-07-30 04:14] LABS: BUN/CREATININE RATIO 15
[2020-07-30] MEDS: KCL 20 MEQ TAB (K-DUR) PO SCH (04:18)
[2020-07-30] MEDS: MAGNESIUM 1 GM/100 ML IVPB 100 ML IV SCH (04:18)
[2020-07-30] MEDS: POTASSIUM CL 10MEQ/50ML IVPB 50 ML IV SCH (04:18)
--- NOTE | 2020-07-30 06:48 | Diagnostic Imaging Report ---
INDICATION: Dyspnea. Comparison made with prior examination from 07/29/2020 FINDINGS: Heart size is normal. There is COPD. There is no pleural effusion. There is no pneumothorax. The mediastinum is unremarkable. IMPRESSION: COPD with some chronic scarring in the right lung apex, otherwise unremarkable. Dictated by: Dictated on workstation # [id number]
--- NOTE | 2020-07-30 09:17 | Diagnostic Imaging Report ---
INDICATION: Followup chest tube. COMPARISON: 07/30/2020. FINDINGS: A chest tube projects in stable alignment. There is no detectable pneumothorax. Subcutaneous emphysema along the right has decreased. Some biapical cyst formation is chronic. Air trapping and COPD are chronic. IMPRESSION: No pneumothorax, soft tissue gas, decreased air trapping, COPD, and some biapical cyst formation are stable. Dictated by: Dictated on workstation # [id number]
--- NOTE | 2020-07-30 09:58 | Progress Note - Hospitalist ---
Subjective HPI/CC On Admission Date Seen by Provider: Jul 30, 2020 Time Seen by Provider: 09:56 Shashank Todd is a 60 year old male with history of tobacco abuse who presented with chest pain. He reports that the pain is worse with inspiration and movement. The pain started yesterday while working. The pain radiates around his right side to his back. There is associated dyspnea. He denies fevers. He denies cough. He denies abdominal pain, nausea, and vomiting. He denies hemoptysis. He does not take any medicines daily. He does not have any known medical problems. He is a current smoker, but says he is going to quit because of this issue. Subjective/Events-last exam Pt reports doing well. No more pain. breathing well. Objective Exam Vital Signs Vital Signs Date Time Temp Pulse Resp B/P (MAP) Pulse Ox O2 Delivery O2 Flow Rate FiO2 07/30/20 08:33 37.1 07/30/20 07:50 High Flow N/C 4.00 07/30/20 06:00 66 137/99 96 07/29/20 10:00 30 Capillary Refill : Less Than 3 Seconds General Appearance: No Apparent Distress, WD/WN Respiratory: Lungs Clear, No Respiratory Distress Cardiovascular: Regular Rate, Rhythm, No Murmur Gastrointestinal: Normal Bowel Sounds, Non Tender, Soft Neurologic/Psychiatric: Alert, Oriented x3 Results/Procedures Lab Laboratory Tests 07/30/20 03:26 07/30/20 03:31 Patient resulted labs reviewed. Imaging: Reviewed Imaging Report Assessment/Plan Assessment and Plan Assess & Plan/Chief Complaint Acute respiratory failure with hypoxia Spontaneous hemopneumothorax Chest tube in place Anemia Pulmonology consulted, appreciate assistance chest tube to water seal, CXR pending Continue antibiotics Supplemental oxygen Hgb stable at 8.4, continue to monitor Surgery consulted, appreciate recs Current smoker Nicotine gum as needed BMI less than 20 General diet plus Ensure DVT prophylaxis: SCDs Diagnosis/Problems Diagnosis/Problems (1) Acute respiratory failure with hypoxia (2) Body mass index (BMI) of 19 or less in adult (3) Hydropneumothorax (4) Chest tube in place (5) Pneumothorax, right Status: Acute (6) Current smoker Clinical Quality Measures DVT/VTE Risk/Contraindication: Risk Factor Score Per Nursin RFS Level Per Nursing on Admit: 3=High ALICIA ISSA MD Jul 30, 2020 09:58
--- NOTE | 2020-07-30 11:31 | NUR ---
CM/SS provided the patient information on the [employer] in [place] as an extra resource for food. Patient verbalized understanding. No further needs.
--- NOTE | 2020-07-30 12:03 | Physical Therapy Progress Note ---
Therapy Progress Note Patient remains connected to chest tube but is up independently. PT set up bedside bath essentials for patient. No skilled therapy indicated PT to dismiss patient from services. 1 visit MANASA BERMAN PT Jul 30, 2020 12:03
--- NOTE | 2020-07-30 15:08 | Progress Note - Surgery ---
LIDYA WALLS MED STUDENT 07/30/20 1508: Subjective Date Seen by a Provider: Jul 30, 2020 Time Seen by a Provider: 07:15 Subjective/Events-last exam Pt doing well today, states his pain and breathing are improved. Dr. Neville changed pt's chest tube from suction to water seal this morning. No air leak today. Drainage of 25 mL from chest tube so far today. CXR showed COPD with chronic lung scarring at right lung apex, but otherwise unremarkable. Objective Exam Vital Signs Date Time Temp Pulse Resp B/P (MAP) Pulse Ox O2 Delivery O2 Flow Rate FiO2 07/30/20 12:53 76 07/30/20 12:06 37.2 07/30/20 12:00 112 96 High Flow N/C 3.00 07/30/20 11:56 High Flow N/C 4.00 07/30/20 08:33 37.1 07/30/20 08:00 62 152/73 99 High Flow N/C 3.00 07/30/20 07:50 High Flow N/C 4.00 07/30/20 06:35 63 07/30/20 06:00 66 137/99 96 High Flow N/C 3.00 07/30/20 05:00 58 123/61 100 High Flow N/C 3.00 07/30/20 04:00 70 107/75 100 High Flow N/C 3.00 07/30/20 03:17 High Flow N/C 3.00 07/30/20 03:00 51 129/71 99 High Flow N/C 6.00 07/30/20 02:00 53 123/62 99 High Flow N/C 6.00 07/30/20 01:00 55 142/72 97 High Flow N/C 6.00 07/30/20 01:00 60 07/30/20 00:00 63 133/69 99 High Flow N/C 6.00 07/29/20 23:43 36.6 07/29/20 23:00 95 High Flow N/C 6.00 07/29/20 23:00 60 136/62 99 High Flow N/C 6.00 07/29/20 22:00 64 127/90 100 High Flow N/C 6.00 07/29/20 21:00 63 141/66 100 High Flow N/C 6.00 07/29/20 20:02 High Flow N/C 6.00 07/29/20 20:00 70 126/70 97 High Flow N/C 6.00 07/29/20 19:50 37.1 07/29/20 19:00 60 141/98 100 High Flow N/C 6.00 07/29/20 19:00 60 07/29/20 17:15 68 149/72 100 High Flow N/C 6.00 07/29/20 15:30 37.0 l I & O 07/30/20 07:00 Intake Total 3038 ml Output Total 3725 ml Balance -687 ml Capillary Refill : Less Than 3 Seconds General Appearance: No Apparent Distress, Thin HEENT: PERRL/EOMI, Normal ENT Inspection Neck: Normal Inspection, Non Tender, Supple Respiratory: Lungs Clear, No Accessory Muscle Use, No Respiratory Distress Cardiovascular: Regular Rate, Rhythm, No Murmur Gastrointestinal: non tender, soft Extremity: Normal Inspection, No Pedal Edema Neurologic/Psychiatric: Alert, No Motor/Sensory Deficits, Normal Mood/Affect Skin: Normal Color, Warm/Dry Lymphatic: No Adenopathy Results Lab Laboratory Tests 07/30/20 03:26: White Blood Count 9.0, Red Blood Count 3.03L, Hemoglobin 8.4L, Hematocrit 26L, Mean Corpuscular Volume 87, Mean Corpuscular Hemoglobin 28, Mean Corpuscular He moglobin Concent 32, Red Cell Distribution Width 13.8, Platelet Count 285, Mean Platelet Volume 8.7L, Immature Granulocyte % (Auto) 0, Neutrophils (%) (Auto) 65, Lymphocytes (%) (Auto) 19, Monocytes (%) (Auto) 9, Eosinophils (%) (Auto) 7, Basophils (%) (Auto) 0, Neutrophils # (Auto) 5.9, Lymphocytes # (Auto) 1.7, Monocytes # (Auto) 0.8, Eosinophils # (Auto) 0.6H, Basophils # (Auto) 0.0, Immature Granulocyte # (Auto) 0.0 07/30/20 03:31: Sodium Level 136, Potassium Level 3.9, Chloride Level 96L, Carbon Dioxide Level 29, Anion Gap 11, Blood Urea Nitrogen 10, Creatinine 0.68, Estimat Glomerular Filtration Rate > 60, BUN/Creatinine Ratio 15, Glucose Level 99, Calcium Level 9.0, Phosphorus Level 4.0, Magnesium Level 2.0 Microbiology 07/25/20 MRSA Screen - Final, Complete MRSA not isolated Assessment/Plan Assessment/Plan Assessment/Plan Spontaneous right hemopneumothorax-Chest tube in place persistent air leak-resolved bullous disease or right upper lung Anemia-stable at 8.4 Tobacco abuse Chest tube to water seal Monitor labs No surgical intervention necessary at this time Clinical Quality Measures DVT/VTE Risk/Contraindication: Risk Factor Score Per Nursin RFS Level Per Nursing on Admit: 3=High LESLIE COTTRELL DO 07/31/20 1415: Subjective Subjective/Events-last exam Feeling better. Not having as much pain right chest wall at tube insertion. No air leak. On water seal. Denies n/v fever sweats chills shortness of breath or chest pain. Objective Exam General Appearance: No Apparent Distress HEENT: PERRL/EOMI, Normal ENT Inspection Neck: Normal Inspection, Non Tender, Supple Respiratory: Chest Non Tender, No Accessory Muscle Use, No Respiratory Distress Cardiovascular: Regular Rate, Rhythm, No JVD Gastrointestinal: non tender, soft Extremity: Normal Inspection Neurologic/Psychiatric: Alert, Oriented x3, No Motor/Sensory Deficits, Normal Mood/Affect Skin: Normal Color, Warm/Dry Lymphatic: No Adenopathy Assessment/Plan Assessment/Plan Assessment/Plan Spontaneous right hemopneumothorax-Chest tube in place no air leak bullous disease or right upper lung Anemia-stable Tobacco abuse Chest tube to water seal Monitor labs No surgical intervention necessary at this time Supervisory-Addendum Brief Verification & Attestation Participated in pt care: history, MDM, physical Personally performed: exam, history, MDM, supervision of care Care discussed with: Medical Student Procedures: n/a Results interpretation: Verified all documentation Verification and Attestation of Medical Student E/M Service A medical student performed and documented this service in my presence. I reviewed and verified all information documented by the medical student and made modifications to such information, when appropriate. I personally performed the physical exam and medical decision making. Leslie Cottrell, Jul 30, 2020,14:15 LIDYA WALLS MED STUDENT Jul 30, 2020 15:08 LESLIE COTTRELL DO Jul 31, 2020 14:15
[2020-07-31] MEDS: morphine INJ 4 MG/ML 1 ML (VIAL/SYRINGE) IVP PRN ×2 (02:36→08:25)
[2020-07-31 03:24] LABS: BASOPHILS % (AUTO) 0 % (0-10); EOSINOPHILS # (AUTO) 0.8 10^3/uL (0.0-0.3); EOSINOPHILS % (AUTO) 7 % (0-10); HEMATOCRIT 28 % (40-54); LYMPHOCYTES # (AUTO) 1.9 10^3/uL (1.0-4.0); LYMPHOCYTES % (AUTO) 19 % (12-44); MEAN CORPUSCULAR HEMOGLOBIN 27 pg (25-34); MEAN CORPUSCULAR HGB CONC 32 g/dL (32-36); MEAN CORPUSCULAR VOLUME 86 fL (80-99); MEAN PLATELET VOLUME 8.2 fL (9.0-12.2); MONOCYTES # (AUTO) 1.1 10^3/uL (0.0-1.0); MONOCYTES % (AUTO) 11 % (0-12); NEUTROPHILS # (AUTO) 6.5 10^3/uL (1.8-7.8); NEUTROPHILS % (AUTO) 63 % (42-75); PLATELET COUNT 311 10^3/uL (130-400); WHITE BLOOD COUNT 10.4 10^3/uL (4.3-11.0)
[2020-07-31 03:35] LABS: CHLORIDE 96 MMOL/L (98-107); POTASSIUM 4.4 MMOL/L (3.6-5.0); SODIUM 135 MMOL/L (135-145)
[2020-07-31 03:36] LABS: CALCIUM 9.1 MG/DL (8.5-10.1); GLUCOSE 102 MG/DL (70-105)
[2020-07-31 03:38] LABS: CARBON DIOXIDE 29 MMOL/L (21-32)
[2020-07-31 03:40] LABS: CREATININE SERUM 0.67 MG/DL (0.60-1.30); GFR ESTIMATED > 60; PHOSPHORUS 3.8 MG/DL (2.3-4.7)
[2020-07-31 03:41] LABS: BUN/CREATININE RATIO 19
[2020-07-31] MEDS: POTASSIUM CL 10MEQ/50ML IVPB 50 ML IV SCH ×2 (03:44→05:40)
[2020-07-31] MEDS: MAGNESIUM 1 GM/100 ML IVPB 100 ML IV SCH ×2 (03:44→05:40)
[2020-07-31] MEDS: KCL 20 MEQ TAB (K-DUR) PO SCH ×2 (03:45→05:40)
--- NOTE | 2020-07-31 03:49 | Pulmonary Progress Note ---
Subjective Date Seen by a Provider: Jul 31, 2020 Time Seen by a Provider: 03:30 Subjective/Events-last exam Patient reports pain at site of chest tube, reports waking up to pain at which point he was given Morphine 2mg. Otherwise no complaints, states he has been sleeping well and breathing well. PT reports he's doing well and will be D/C'd from their service. Cxr reports chronic scarring in R upper lobe but otherwise stable. Patient states he feels ready to go home again. Sepsis Event Evaluation Height, Weight, BMI Height: '" Weight: lbs. oz. kg; 18.25 BMI Method: Exam Exam Vital Signs Date Time Temp Pulse Resp B/P (MAP) Pulse Ox O2 Delivery O2 Flow Rate FiO2 07/30/20 23:35 36.6 07/30/20 20:18 High Flow N/C 4.00 07/30/20 19:00 64 117/67 98 High Flow N/C 3.00 07/30/20 19:00 64 07/30/20 16:25 36.7 07/30/20 16:00 62 139/70 97 High Flow N/C 3.00 07/30/20 12:53 76 07/30/20 12:06 37.2 07/30/20 12:00 112 96 High Flow N/C 3.00 07/30/20 11:56 High Flow N/C 4.00 07/30/20 08:33 37.1 07/30/20 08:00 62 152/73 99 High Flow N/C 3.00 07/30/20 07:50 High Flow N/C 4.00 07/30/20 06:35 63 07/30/20 06:00 66 137/99 96 High Flow N/C 3.00 07/30/20 05:00 58 123/61 100 High Flow N/C 3.00 07/30/20 04:00 70 107/75 100 High Flow N/C 3.00 I & O 07/31/20 07:00 Intake Total 2570 ml Output Total 2700 ml Balance -130 ml Height & Weight Height: '" Weight: lbs. oz. kg; 18.25 BMI Method: General Appearance: No Apparent Distress, Thin HEENT: PERRL/EOMI, Normal ENT Inspection Neck: Normal Inspection, Non Tender, Supple Respiratory: Lungs Clear, No Accessory Muscle Use, No Respiratory Distress, Crackles (mild, RLL) Cardiovascular: Regular Rate, Rhythm, No Murmur Capillary Refill: Less Than 3 Seconds Gastrointestinal: non tender, soft Extremity: Normal Inspection, Non Tender, No Pedal Edema Neurologic/Psychiatric: Alert, Normal Mood/Affect; No Disoriented Skin: Normal Color, Warm/Dry Results Lab Laboratory Tests 07/30/20 03:26 07/30/20 03:31 07/31/20 03:10 Assessment/Plan Assessment/Plan Acute spont PTX s/p Pleurex chest tube. -CT of chest with contrast reviewed -Chest tube placed -tube water sealed -will monitor for continued output right pleural effusion -BNP - is normal Anemia -Monitor -Hold lovenox for now Leukocytosis-- resolved. Doubt pna -D/C Rocephin, and azithromycin -PCT- Normal PT/OT -patient will continue to work with PT to build stamina especially for walking Severe COPD/Emphysema Tobacco use -He has smoked since 13yo XIMENA BROWN MED STUDENT Jul 31, 2020 03:49
[2020-07-31] MEDS ORDERED: morphine INJ 4 MG/ML 1 ML (VIAL/SYRINGE) IVP ONE (05:15)
--- NOTE | 2020-07-31 07:45 | Progress Note - Surgery ---
LIDYA WALLS MED STUDENT 07/31/20 0744: Subjective Date Seen by a Provider: Jul 31, 2020 Time Seen by a Provider: 07:30 Subjective/Events-last exam On exam, pt is eating breakfast. States he is doing well and wants to go home today. Denies any problems besides some mild pain at the site of the chest tube. Tube was clamped this morning by Dr. Neville. No drainage so far today from the tube. Hgb stable at 9.0. CXR from 03:00 this morning has not yet been read by radiology, but appears unchanged from yesterday's CXR. Objective Exam Vital Signs Date Time Temp Pulse Resp B/P (MAP) Pulse Ox O2 Delivery O2 Flow Rate FiO2 07/31/20 04:00 62 133/83 100 High Flow N/C 3.00 07/31/20 03:48 36.3 07/31/20 01:00 68 07/31/20 00:00 64 103/67 99 High Flow N/C 3.00 07/30/20 23:35 36.6 07/30/20 20:18 High Flow N/C 4.00 07/30/20 20:00 74 122/81 97 High Flow N/C 3.00 07/30/20 19:00 64 117/67 98 High Flow N/C 3.00 07/30/20 19:00 64 07/30/20 16:25 36.7 07/30/20 16:00 62 139/70 97 High Flow N/C 3.00 07/30/20 12:53 76 07/30/20 12:06 37.2 07/30/20 12:00 112 96 High Flow N/C 3.00 07/30/20 11:56 High Flow N/C 4.00 07/30/20 08:33 37.1 07/30/20 08:00 62 152/73 99 High Flow N/C 3.00 07/30/20 07:50 High Flow N/C 4.00 I & O 07/31/20 07:00 Intake Total 2870 ml Output Total 3050 ml Balance -180 ml Capillary Refill : Less Than 3 Seconds General Appearance: No Apparent Distress, Thin HEENT: PERRL/EOMI, Normal ENT Inspection Neck: Normal Inspection, Supple Respiratory: Lungs Clear, No Accessory Muscle Use, No Respiratory Distress Cardiovascular: Regular Rate, Rhythm, No Murmur Gastrointestinal: non tender, soft Extremity: Normal Inspection, Non Tender, No Pedal Edema Neurologic/Psychiatric: Alert, No Motor/Sensory Deficits, Normal Mood/Affect Skin: Normal Color, Warm/Dry Lymphatic: No Adenopathy Results Lab Laboratory Tests 07/31/20 03:10: White Blood Count 10.4, Red Blood Count 3.28L, Hemoglobin 9.0L, Hematocrit 28L, Mean Corpuscular Volume 86, Mean Corpuscular Hemoglobin 27, Mean Corpuscular Hemoglobin Concent 32, Red Cell Distribution Width 13.7, Platelet Count 311, Mean Platelet Volume 8.2L, Immature Granulocyte % (Auto) 0, Neutrophils (%) (Auto) 63, Lymphocytes (%) (Auto) 19, Monocytes (%) (Auto) 11, Eosinophils (%) (Auto) 7, Basophils (%) (Auto) 0, Neutrophils # (Auto) 6.5, Lymphocytes # (Auto) 1.9, Monocytes # (Auto) 1.1H, Eosinophils # (Auto) 0.8H, Basophils # (Auto) 0.0, Immature Granulocyte # (Auto) 0.0, Sodium Level 135, Potassium Level 4.4, Chloride Level 96L, Carbon Dioxide Level 29, Anion Gap 10, Blood Urea Nitrogen 13, Creatinine 0.67, Estimat Glomerular Filtration Rate > 60, BUN/Creatinine Ratio 19, Glucose Level 102, Calcium Level 9.1, Phosphorus Level 3.8, Magnesium Level 2.0 Microbiology 07/25/20 MRSA Screen - Final, Complete MRSA not isolated Assessment/Plan Assessment/Plan Assessment/Plan Spontaneous right hemopneumothorax-Chest tube in place persistent air leak-resolved bullous disease or right upper lung Anemia-stable at 9.0 Tobacco abuse Chest tube clamped Monitor labs Possible chest tube removal and discharge tomorrow per Dr. Neville No surgical intervention necessary at this time Clinical Quality Measures DVT/VTE Risk/Contraindication: Risk Factor Score Per Nursin RFS Level Per Nursing on Admit: 3=High LESLIE COTTRELL DO 07/31/20 1421: Subjective Subjective/Events-last exam Doing well. Pain controlled. Chest tube clamped. Denies n/v fever sweats chills shortness of breath or chest pain. Objective Exam General Appearance: No Apparent Distress HEENT: PERRL/EOMI, Normal ENT Inspection Neck: Normal Inspection, Supple Respiratory: Chest Non Tender, No Accessory Muscle Use, No Respiratory Distress Cardiovascular: Regular Rate, Rhythm, No Murmur Gastrointestinal: non tender, soft Extremity: Normal Inspection, Non Tender Neurologic/Psychiatric: Alert, Oriented x3, No Motor/Sensory Deficits, Normal Mood/Affect Skin: Normal Color, Warm/Dry Lymphatic: No Adenopathy Assessment/Plan Assessment/Plan Assessment/Plan Spontaneous right hemopneumothorax-Chest tube in place bullous disease or right upper lung Anemia-stable Tobacco abuse Chest tube clamped Monitor labs Possible chest tube removal and discharge tomorrow per Dr. Neville No surgical intervention necessary at this time Will sign off call if needed. Supervisory-Addendum Brief Verification & Attestation Participated in pt care: history, MDM, physical Personally performed: exam, history, MDM, supervision of care Care discussed with: Medical Student Procedures: n/a Results interpretation: Verified all documentation Verification and Attestation of Medical Student E/M Service A medical student performed and documented this service in my presence. I reviewed and verified all information documented by the medical student and made modifications to such information, when appropriate. I personally performed the physical exam and medical decision making. Leslie Cottrell, Jul 31, 2020,14:21 LIDYA WALLS MED STUDENT Jul 31, 2020 07:44 LESLIE COTTRELL DO Jul 31, 2020 14:21
--- NOTE | 2020-07-31 08:36 | Diagnostic Imaging Report ---
Clinical indications: Followup chest tube. ICU care management. Exam: Portable chest x-ray upright view. Comparisons: Chest x-ray dated 07/30/2020. Findings: Stable blunting of right costophrenic angle which may represent pleural effusion or pleural thickening. Lungs are hyperinflated. There is increased lung markings in both upper lung field regions which may be related to scarring. Stable elevation or eventration of the left hemidiaphragm seen. Pulmonary vasculature and cardiac silhouette is within normal limits. There are hypertrophic spurs involving the thoracic spine. Chest tube seen overlying the right hemithorax region. There is no pneumothorax. Subcutaneous air is again seen overlying the right extrathoracic soft tissue which is decreasing. IMPRESSION: 1: Again seen chest tube overlying the right hemithorax region. There is no pneumothorax. There is decreasing subcutaneous air overlying the right hemithorax region. 2: Hyperinflated lungs are again seen with no interval lung infiltrate. 2: There is stable pleural thickening or fluid involving the right costophrenic angle region. Dictated by: Dictated on workstation # [id number]
--- NOTE | 2020-07-31 08:45 | Diagnostic Imaging Report ---
Clinical indications: Patient post chest tube clamped at 4:00 AM. Exam: Portable chest x-ray upright view. Comparisons: Chest x-ray dated 07/31/2020 at 0312 hours. Findings: Chest tube is again seen in stable position overlying the right hemithorax. There is no pneumothorax. Subcutaneous air overlying the right extrathoracic soft tissues again seen. Mild bibasilar atelectasis with suspected scarring in both lung apices. Otherwise, lungs are clear. The remainder of this exam shows no significant interval change compared to the prior study of comparison. Impression: Chest tube is in stable position. There is no pneumothorax. Dictated by: Dictated on workstation # [id number]
[2020-07-31] MEDS: HYDROcodone/APAP 5 MG/325 MG (LORTAB) TAB PO PRN ×4 (09:13→21:50)
--- NOTE | 2020-07-31 10:45 | Progress Note - Hospitalist ---
Subjective HPI/CC On Admission Date Seen by Provider: Jul 31, 2020 Time Seen by Provider: 10:41 Shashank Todd is a 60 year old male with history of tobacco abuse who presented with chest pain. He reports that the pain is worse with inspiration and movement. The pain started yesterday while working. The pain radiates around his right side to his back. There is associated dyspnea. He denies fevers. He denies cough. He denies abdominal pain, nausea, and vomiting. He denies hemoptysis. He does not take any medicines daily. He does not have any known medical problems. He is a current smoker, but says he is going to quit because of this issue. Subjective/Events-last exam Pt reports doing well breathing watson but has pain around his chest tube site. Objective Exam Vital Signs Vital Signs Date Time Temp Pulse Resp B/P (MAP) Pulse Ox O2 Delivery O2 Flow Rate FiO2 07/31/20 09:00 Room Air 07/31/20 08:00 36.9 82 144/82 91 07/31/20 04:00 3.00 07/29/20 10:00 30 Capillary Refill : Less Than 3 Seconds General Appearance: No Apparent Distress, WD/WN Respiratory: Lungs Clear, No Accessory Muscle Use, Other (chest tube in place) Cardiovascular: Regular Rate, Rhythm, No Murmur Neurologic/Psychiatric: Alert, Oriented x3 Results/Procedures Lab Laboratory Tests 07/31/20 03:10 Patient resulted labs reviewed. Imaging: Reviewed Imaging Report Assessment/Plan Assessment and Plan Assess & Plan/Chief Complaint Acute respiratory failure with hypoxia Spontaneous hemopneumothorax Chest tube in place Anemia Pulmonology consulted, appreciate assistance chest tube clamped this morning, repeat CXR this AM Supplemental oxygen Hgb stable at 8.4, continue to monitor Surgery consulted, appreciate recs Current smoker Nicotine gum as needed BMI less than 20 General diet plus Ensure DVT prophylaxis: SCDs Diagnosis/Problems Diagnosis/Problems (1) Acute respiratory failure with hypoxia (2) Body mass index (BMI) of 19 or less in adult (3) Hydropneumothorax (4) Chest tube in place (5) Pneumothorax, right Status: Acute (6) Current smoker Clinical Quality Measures DVT/VTE Risk/Contraindication: Risk Factor Score Per Nursin RFS Level Per Nursing on Admit: 3=High ALICIA ISSA MD Jul 31, 2020 10:45
--- NOTE | 2020-07-31 18:11 | NUR ---
This RN assumed patient care at this time. patient alert and orientated verbalizes no needs at this time
[2020-08-01] MEDS: HYDROcodone/APAP 5 MG/325 MG (LORTAB) TAB PO PRN ×3 (02:52→14:06)
[2020-08-01 05:10] LABS: BASOPHILS # (AUTO) 0.1 10^3/uL (0.0-0.1); BASOPHILS % (AUTO) 1 % (0-10); EOSINOPHILS # (AUTO) 0.6 10^3/uL (0.0-0.3); EOSINOPHILS % (AUTO) 7 % (0-10); HEMATOCRIT 28 % (40-54); HEMOGLOBIN 8.8 g/dL (13.3-17.7); LYMPHOCYTES # (AUTO) 1.5 10^3/uL (1.0-4.0); LYMPHOCYTES % (AUTO) 17 % (12-44); MEAN CORPUSCULAR HEMOGLOBIN 27 pg (25-34); MEAN CORPUSCULAR HGB CONC 31 g/dL (32-36); MEAN CORPUSCULAR VOLUME 87 fL (80-99); MEAN PLATELET VOLUME 8.7 fL (9.0-12.2); MONOCYTES # (AUTO) 0.9 10^3/uL (0.0-1.0); MONOCYTES % (AUTO) 11 % (0-12); NEUTROPHILS # (AUTO) 5.6 10^3/uL (1.8-7.8); NEUTROPHILS % (AUTO) 64 % (42-75); PLATELET COUNT 388 10^3/uL (130-400); WHITE BLOOD COUNT 8.7 10^3/uL (4.3-11.0)
[2020-08-01 05:34] LABS: CHLORIDE 97 MMOL/L (98-107); POTASSIUM 4.3 MMOL/L (3.6-5.0); SODIUM 134 MMOL/L (135-145)
[2020-08-01 05:35] LABS: CALCIUM 9.1 MG/DL (8.5-10.1)
[2020-08-01 05:36] LABS: GLUCOSE 96 MG/DL (70-105)
[2020-08-01 05:37] LABS: CARBON DIOXIDE 27 MMOL/L (21-32)
[2020-08-01 05:40] LABS: CREATININE SERUM 0.73 MG/DL (0.60-1.30); GFR ESTIMATED > 60; PHOSPHORUS 3.5 MG/DL (2.3-4.7)
[2020-08-01 05:41] LABS: BUN/CREATININE RATIO 21
[2020-08-01] MEDS: POTASSIUM CL 10MEQ/50ML IVPB 50 ML IV SCH (05:41)
[2020-08-01] MEDS: KCL 20 MEQ TAB (K-DUR) PO SCH (05:42)
[2020-08-01] MEDS: MAGNESIUM 1 GM/100 ML IVPB 100 ML IV SCH (05:43)
--- NOTE | 2020-08-01 08:53 | Diagnostic Imaging Report ---
INDICATION: Chest tube clamped x24 hours. TECHNIQUE: Single view chest 4:37 AM. CORRELATION STUDY: 07/31/2020 FINDINGS: Right-sided chest tube is present, tip near the mid to upper thorax. The lung garcia are hyperinflated likely reflecting COPD. Prominent interstitial markings. Probable small right pleural effusion. No appreciable pneumothorax. Heart size and mediastinum are generally stable. IMPRESSION: 1. Right chest tube present without appreciable pneumothorax. Small right pleural effusion. Initial report was provided by [employer]. Dictated by: Dictated on workstation # [id number]
--- NOTE | 2020-08-01 11:51 | Discharge Summary ---
Diagnosis/Chief Complaint Date of Admission Jul 25, 2020 at 11:10 Date of Discharge Admission Diagnosis Acute respiratory failure with hypoxia due to hydropneumothorax Primary Care No,Local Physician Discharge Diagnosis (1) Acute respiratory failure with hypoxia (2) Body mass index (BMI) of 19 or less in adult (3) Hydropneumothorax (4) Chest tube in place (5) Pneumothorax, right Status: Acute (6) Current smoker Discharge Summary Procedures/Consulations Pulm- Dr Neville Surgery- Dr Cottrell Discharge Physical Exam Allergies: Coded Allergies: No Known Drug Allergies (Unverified , 07/25/20) Vitals & I&Os Vital Signs Date Time Temp Pulse Resp B/P (MAP) Pulse Ox O2 Delivery O2 Flow Rate FiO2 08/01/20 12:00 35.9 70 20 139/69 96 Room Air 07/31/20 04:00 3.00 General Appearance: No Apparent Distress, WD/WN, Thin Respiratory: Lungs Clear, No Respiratory Distress Cardiovascular: Regular Rate, Rhythm, No Murmur Neurologic/Psychiatric: Alert, Oriented x3 Hospital Course patient was admitted secondary to spontaneous pneumothorax. He had a thorn of it placed in the emergency department but resolution of pneumothorax was not obtained with this. This was exchanged for large-bore chest tube and he had nearly 650ml bloody output mediately indicating hemothorax. he did well with this and it was clamped for over 24 hours and he maintained resolution of pneumothorax. Chest tube was removed and he was discharged home in stable condition to follow up with his primary care doctor and Dr. Neville. Labs (last 24 hrs) Microbiology 07/25/20 MRSA Screen - Final, Complete MRSA not isolated Patient resulted labs reviewed. Pending Labs Imaging: Reviewed Imaging Report Discussion & Recommendations Discharge Planning: >30 minutes discharge planning Discharge Home Medications: Active Scripts Active Reported Multivitamin 1 Each Tablet 1 Each PO DAILY Tums X-Str (Calcium Carbonate) 300 Mg Tab.chew 300-600 Mg PO UD PRN Vitamin C (Ascorbic Acid) 500 Mg Capsule 500 Mg PO Vitamin D3 (Cholecalciferol (Vitamin D3)) 25 Mcg Tablet 25 Mcg PO DAILY Tylenol Extra Strength (Acetaminophen) 500 Mg Tablet 1,000 Mg PO Q8H PRN Instructions to patient/family Please see electronic discharge instructions given to patient. Clinical Quality Measures DVT/VTE Risk/Contraindication: Risk Factor Score Per Nursin RFS Level Per Nursing on Admit: 3=High ALICIA ISSA MD Aug 01, 2020 11:51
--- NOTE | 2020-08-01 12:00 | Discharge Inst-Simple/Standard ---
Discharge Inst-Standard Patient Instructions/Follow Up Plan of Care/Instructions/FU: Please continue to take your medications as written. Please follow up with your primary care doctor to follow up this hospital stay and with Dr Neville in two weeks. Activity as Tolerated: Yes Discharge Diet: No Restrictions Return to The Hospital For: Chest pain, shortness of breath, fever, cough, if you feel you are getting worse. ALICIA ISSA MD Aug 01, 2020 11:57
--- NOTE | 2020-08-01 13:43 | Progress Note - Surgery ---
Subjective Time Seen by a Provider: 12:58 Subjective/Events-last exam I was asked to see pt regarding removal of CT. Pt seen and examined, no complaints and denies SOB. States minimal pain at CT site. CXR today shows no PTX. Review of Systems General: No Chills, No Night Sweats Pulmonary: No Dyspnea, No Cough Cardiovascular: No: Chest Pain, Palpitations Gastrointestinal: No: Nausea, Vomiting, Abdominal Pain Objective Exam Vital Signs Date Time Temp Pulse Resp B/P (MAP) Pulse Ox O2 Delivery O2 Flow Rate FiO2 08/01/20 08:02 Room Air 08/01/20 08:00 35.9 71 20 145/73 96 Room Air 08/01/20 03:12 36.6 74 16 135/79 93 Room Air 07/31/20 23:32 36.6 78 17 144/72 91 Room Air 07/31/20 21:00 Room Air 07/31/20 19:27 36.4 79 18 104/70 94 Room Air 07/31/20 17:52 36.5 96 16 134/68 94 Room Air 07/31/20 16:00 36.8 71 16 131/81 92 Room Air I & O 08/01/20 07:00 Intake Total 1800 ml Output Total 400 ml Balance 1400 ml Capillary Refill : Less Than 3 Seconds General Appearance: No Apparent Distress, Thin HEENT: PERRL/EOMI Respiratory: No Accessory Muscle Use, No Respiratory Distress, Decreased Breath Sounds (right base) Cardiovascular: Regular Rate, Rhythm, No Murmur Gastrointestinal: non tender, soft Neurologic/Psychiatric: Alert, Oriented x3 Skin: Ecchymosis (around chest tube, old) Results Lab Laboratory Tests 08/01/20 04:37: White Blood Count 8.7, Red Blood Count 3.24L, Hemoglobin 8.8L, Hematocrit 28L, Mean Corpuscular Volume 87, Mean Corpuscular Hemoglobin 27, Mean Corpuscular Hemoglobin Concent 31L, Red Cell Distribution Width 14.1, Platelet Count 388, Mean Platelet Volume 8.7L, Immature Granulocyte % (Auto) 1, Neutrophils (%) (Auto) 64, Lymphocytes (%) (Auto) 17, Monocytes (%) (Auto) 11, Eosinophils (%) (Auto) 7, Basophils (%) (Auto) 1, Neutrophils # (Auto) 5.6, Lymphocytes # (Auto) 1.5, Monocytes # (Auto) 0.9, Eosinophils # (Auto) 0.6H, Basophils # (Auto) 0.1, Immature Granulocyte # (Auto) 0.0, Sodium Level 134L, Potassium Level 4.3, Chloride Level 97L, Carbon Dioxide Level 27, Anion Gap 10, Blood Urea Nitrogen 15, Creatinine 0.73, Estimat Glomerular Filtration Rate > 60, BUN/Creatinine Ratio 21, Glucose Level 96, Calcium Level 9.1, Phosphorus Level 3.5, Magnesium Level 2.0 Microbiology 07/25/20 MRSA Screen - Final, Complete MRSA not isolated Assessment/Plan Assessment/Plan Assessment/Plan Spontaneous right hemopneumothorax Bullous disease of right upper lung Anemia-stable Tobacco abuse Chest tube D/C'd without any difficulty and occlusive dressing placed. Pt ok to go home today, if he has any SOB or increased pain he will need to get CXR immediately. Clinical Quality Measures DVT/VTE Risk/Contraindication: Risk Factor Score Per Nursin RFS Level Per Nursing on Admit: 3=High NAYANA HYDE DO Aug 01, 2020 13:43
--- NOTE | 2020-08-01 14:15 | NUR ---
DR MAEGAN BROOKS ORDERS IN. ENTERED ROOM TO ASSESS PATIENT AND PATIENT IS OFF FLOOR. NOTIFIED MEDICAL OFFICE ASSISTANT INSTRUCTOR. CALLED PATIENT. PATIENT INITIALLY HUNG UP ON THIS RN. [facility] RN CALLED BACK AND PATIENT ANSWERED. INSTRUCTED PATIENT MEDICAL STAFF NEEDS TO REMOVE IV. PATIENT REPORTED HE ALREADY "TOOK IT OUT" DENIES BLEEDING. THIS RN HAD PREVIOUSLY EDUCATED PATIENT ON PNEUMOTHORAX AND CHEST TUBE SITE. PATIENT VERBALIZED UNDERSTANDING. PATIENT DENIES ANY QUESTIONS AT [facility] TIME. THANKS THIS STAFF FOR CARE. PATIENT INFORMED THAT INSTRUCTIONS WILL BE DOWN AT THE EMERGENCY ROOM ENTRANCE . Addendum: 08/01/20 at 1631 by DAJA STOREY RN TIME [id number]
--- NOTE | 2020-08-01 14:20 | NUR ---
DR HYED REQUESTED BY THIS RN FOR D/C ORDERS AND SPECIFICS FOR ACTIVITY TOLERANCE AND OCCLUSIVE DRESSING. MARY ELLEN STATES NO ACTIVITY RESTRICTIONS, PATIETN MAY RETURN TO WORK AND DRESSING IN PLACE FOR 48 HOURS. ALSO REFERRED THIS RN TO DR ISSA FOR D/ C ORDERS. PATIENT EDUCATED ON THESE ORDERS. CONT TO MONITOR.
--- NOTE | 2020-08-01 15:37 | NUR ---
DR ISSA REMINDED OF PATIENT DC AND MARY ELLEN OKAYED D/C AND REMOVED CHEST TUBE. SHE IS AWARE OF D/C.
--- NOTE | 2020-08-01 16:31 | NUR ---
INCORRECT TIME ASSESSMENT OF PATIENT LEFT PREMESIS IS AT 1313
--- NOTE | 2020-08-01 16:32 | NUR ---
DIGITAL PHOTOGRAPHER NOTIFED OF THE EVENT.
== END 2020-08-01 16:27 | disposition home or self-care (01) | DRG 186 ==
LOC: ER FS 07:30 → ICU 11:10 → CSD 07-31 05:10 → 4TH 07-31 17:48
PROVIDERS: ADMIT Internal Medicine; ATTEND Internal Medicine
PROC: 0W9930Z Drainage of Right Pleural Cavity with Drainage Device, Percutaneous Approach (ICD-10-PCS; principal; 2020-07-25)
PROC: 0W9930Z Drainage of Right Pleural Cavity with Drainage Device, Percutaneous Approach (ICD-10-PCS; 2020-07-28)
DX: J94.8 Other specified pleural conditions (principal); J96.01 Acute respiratory failure with hypoxia; Z68.1 Body mass index [BMI] 19.9 or less, adult; J95.812 Postprocedural air leak; J90 Pleural effusion, not elsewhere classified; J43.9 Emphysema, unspecified; D72.829 Elevated white blood cell count, unspecified; D64.9 Anemia, unspecified; F17.210 Nicotine dependence, cigarettes, uncomplicated
CPT/HCPCS: 32551; 36415; 71045; 71260; 80048; 80053; 81000; 83735; 83880; 84100; 84145; 84484; 85025; 85379; 85610; 85730; 86850; 86900; 86901; 87081; 93005; 99291